=== PATIENT | male | born 1945 | race Caucasian/White ===

== ENCOUNTER 2018-04-11 12:48 | Emergency (ER) | payer MEDICAID, MEDICARE ==
[~2018-04-11] VITALS: Ht 177.8 cm; Wt 70.0 kg
[~2018-04-11 12:48] MED LIST: ABIL5 PO; ACET650S25 PO; ATOR20TA65 PO; BISA10SU66 RC; CHOL100044 PO; CLON1TAB PO; DOCU-150 PO; DULO60CA44 PO; FERR-63 PO; FLONAS NS; FLUT12AE3 IH; HYDR-3927 PO; IBUP-1649 PO; MAGN800O PO; METF500T6 PO; MONT10TA21 PO; MULT-1146 PO; OMEP20TA15 PO; OXYB15TA9 PO; TIOT18CA3 INH
[2018-04-11 13:36] LABS: CHLORIDE 97 mEq/L (98-107); PROTHROMBIN TIME 9.6 sec (9.1-11.1)
[2018-04-11 13:39] LABS: HEMATOCRIT. 24.6 % (42.0-52.0); HEMOGLOBIN. 7.9 g/dL (14.0-18.0); MEAN PLATELET VOLUME 7.3 fl (7.4-10.4); PLATELET 389 x1000/uL (130-400); RED BLOOD CELL COUNT 2.93 mill/uL (4.7-6.1); RED CELL DISTRIBUTION WIDTH 16.9 % (11.6-14.6)
[2018-04-11 14:20] LABS: PLATELET ESTIMATE NORMAL
[2018-04-11 17:36] VITALS: BP 106/67
== END 2018-04-11 17:40 ==
LOC: ER 12:48 → CANBEDREQ 18:21
DX: D64.9 Anemia, unspecified (principal); E86.0 Dehydration; I11.0 Hypertensive heart disease with heart failure; I50.9 Heart failure, unspecified; K21.9 Gastro-esophageal reflux disease without esophagitis; J44.9 Chronic obstructive pulmonary disease, unspecified; E11.9 Type 2 diabetes mellitus without complications; I48.91 Unspecified atrial fibrillation; F31.9 Bipolar disorder, unspecified; E78.00 Pure hypercholesterolemia, unspecified; N40.0 Benign prostatic hyperplasia without lower urinary tract symptoms; Z79.01 Long term (current) use of anticoagulants; Z79.84 Long term (current) use of oral hypoglycemic drugs; Z93.0 Tracheostomy status
CPT/HCPCS: 36415; 71045; 80053; 85025; 85610; 86850; 86900; 99285

== ENCOUNTER 2018-07-04 16:54 | Inpatient (IN) | payer MEDICARE, MEDICAID ==
[~2018-07-04] VITALS: Ht 183.1 cm; Wt 81.6 kg
[~2018-07-04 16:54] MED LIST changes: +METF-414 PO; -METF500T6 PO
[2018-07-04 17:58] LABS: BASOPHILS % 0.6 % (0.0-2.0); EOSINOPHILS % 0.9 % (0.0-5.0); HEMATOCRIT. 22.9 % (42.0-52.0); HEMOGLOBIN. 7.2 g/dL (14.0-18.0); MEAN CORPUSCULAR HEMOGLOBIN 28.2 pg (28.0-32.0); MEAN CORPUSCULAR VOLUME 89.1 fL (80.0-94.0); MEAN PLATELET VOLUME 7.3 fl (7.4-10.4); NEUTROPHILS % 76.5 % (40.0-76.0); PLATELET 466 x1000/uL (130-400); RED BLOOD CELL COUNT 2.57 mill/uL (4.7-6.1); RED CELL DISTRIBUTION WIDTH 21.2 % (11.6-14.6)
[2018-07-04 18:03] LABS: CHLORIDE 102 mEq/L (98-107)
[2018-07-04 18:05] LABS: PARTIAL THROMBOPLASTIN TIME 26.8 sec (23.4-31.0)
[2018-07-04 18:28] LABS: BG BASE EXCESS 8.7 mmol/L (-2.0-2.0); BG CARBOXYHEMOGLOBIN 0.1 % (0.5-1.5); BG DEOXYHEMOGLOBIN 1.6 % (0.0-5.0); BG FRACTION INSPIRED OXYGEN 40; BG HCO3 ACT 33.8 mmol/L (22.0-26.0); BG METHEMOGLOBIN 0.4 % (0.0-1.5); BG OXYGEN SATURATION 98.4 % (92.0-98.5); BG OXYHEMOGLOBIN 97.9 % (94.0-97.0); BG PCO2 49.8 mmHg (35.0-45.0); BG PH 7.449 (7.350-7.450); BG PO2 119.5 mmHg (75.0-100.0); BG SAMPLE SITE RIGHT RADIAL; BG TIDAL VOLUME(mL) 450 mL; BG TOTAL HEMOGLOBIN 8.7 g/dL (12.0-18.0); BG VENT MODE VENT - A/C; BG VENT RATE 15 set
[2018-07-04] MEDS ORDERED: FUROSEMIDE 20MG/2ML VIAL IVP ONE (18:30)
[2018-07-04 18:47] LABS: TOTAL IRON BINDING CAPACITY 317 ug/dL (250-450)
[2018-07-04 21:15] LABS: CLARITY URINE CLEAR (CLEAR); COLOR URINE YELLOW (YELLOW); KETONES URINE TRACE (NEGATIVE); LEUKOCYTE ESTERASE URINE NEGATIVE (NEGATIVE); NITRITE URINE NEGATIVE (NEGATIVE); OCCULT BLOOD URINE NEGATIVE (NEGATIVE); PH URINE 6.5 (4.5-8.0); PROTEIN URINE NEGATIVE (NEGATIVE); SPECIFIC GRAVITY URINE 1.022 (1.005-1.030)
[2018-07-04 23:15] VITALS: BP 102/52
[2018-07-05] VITALS (12 sets, daily range): BP systolic 96–125; BP diastolic 31–71
[2018-07-05] MEDS ORDERED: ACETAMINOPHEN 325MG TABLET PO PRN (00:30)
[2018-07-05 07:37] LABS: BASOPHILS % 0.8 % (0.0-2.0); EOSINOPHILS % 2.1 % (0.0-5.0); HEMATOCRIT. 22.9 % (42.0-52.0); HEMOGLOBIN. 7.4 g/dL (14.0-18.0); LYMPHOCYTES % 14.9 % (20.0-50.0); MEAN CORPUSCULAR HEMOGLOBIN 28.7 pg (28.0-32.0); MEAN CORPUSCULAR VOLUME 88.9 fL (80.0-94.0); MEAN PLATELET VOLUME 7.6 fl (7.4-10.4); MONOCYTES % 14.2 % (2.0-8.0); PLATELET 436 x1000/uL (130-400); RED BLOOD CELL COUNT 2.57 mill/uL (4.7-6.1); RED CELL DISTRIBUTION WIDTH 20.7 % (11.6-14.6)
[2018-07-05 07:51] LABS: CHLORIDE 100 mEq/L (98-107)
[2018-07-05] MEDS ORDERED: PANTOPRAZOLE SODIUM 40 MG/VIAL IV NR (13:15)
[2018-07-05] MEDS ORDERED: IPRATROPIUM/ALBUTEROL 0.5-3(2.5)MG/3ML NEB HHN PRN (13:15)
[2018-07-05] MEDS: FERROUS SULFATE 325MG TABLET PO SCH ×2 (13:51→18:13)
[2018-07-05] MEDS: ACETYLCYSTEINE 100MG/ML 10% VIAL 4ML INH SCH ×2 (15:44→23:35)
[2018-07-05] MEDS: IPRATROPIUM/ALBUTEROL 0.5-3(2.5)MG/3ML NEB HHN SCH ×3 (15:44→23:35)
[2018-07-05 16:24] LABS: CLARITY URINE CLEAR (CLEAR); COLOR URINE YELLOW (YELLOW); KETONES URINE TRACE (NEGATIVE); LEUKOCYTE ESTERASE URINE 1+ (NEGATIVE); NITRITE URINE NEGATIVE (NEGATIVE); OCCULT BLOOD URINE 2+ (NEGATIVE); PROTEIN URINE 1+ (NEGATIVE); SPECIFIC GRAVITY URINE 1.021 (1.005-1.030)
[2018-07-05] MEDS ORDERED: DOCUSATE SODIUM 100MG CAPSULE PO PRN (18:00)
[2018-07-05] MEDS ORDERED: ONDANSETRON HCL 4MG/2ML INJ IV PRN (18:00)
[2018-07-05] MEDS ORDERED: CLONIDINE 0.1MG TABLET PO PRN (18:00)
[2018-07-05] MEDS ORDERED: MAGNESIUM/ALUMINUM HYDROXIDE/SIMETHICONE 30ML UDC PO PRN (18:00)
[2018-07-05] MEDS ORDERED: DOCUSATE SODIUM SUGAR FREE 100MG/10ML UDC GT PRN (19:08)
[2018-07-05] MEDS: BUDESONIDE 0.5MG/2ML NEB HHN SCH (20:21)
[2018-07-05] MEDS: ATORVASTATIN CALCIUM 20MG TABLET PO SCH (22:08)
[2018-07-05] MEDS: MONTELUKAST SODIUM 10MG TABLET PO SCH (22:08)
[2018-07-05] MEDS: CLONAZEPAM 1MG TABLET PO SCH (22:09)
[2018-07-05] MEDS: TRAMADOL 50MG TABLET PO PRN (22:10)
[2018-07-05] MEDS: METFORMIN HCL 500MG TABLET PO SCH (22:10)
[2018-07-06] VITALS (12 sets, daily range): BP systolic 88–174; BP diastolic 44–73
[2018-07-06] MEDS: IPRATROPIUM/ALBUTEROL 0.5-3(2.5)MG/3ML NEB HHN SCH ×6 (04:17→23:45)
[2018-07-06 06:36] LABS: BASOPHILS % 0.8 % (0.0-2.0); EOSINOPHILS % 2.7 % (0.0-5.0); HEMATOCRIT. 22.6 % (42.0-52.0); HEMOGLOBIN. 7.3 g/dL (14.0-18.0); LYMPHOCYTES % 14.2 % (20.0-50.0); MEAN CORPUSCULAR HEMOGLOBIN 28.7 pg (28.0-32.0); MEAN CORPUSCULAR VOLUME 88.5 fL (80.0-94.0); MEAN PLATELET VOLUME 7.4 fl (7.4-10.4); MONOCYTES % 13.7 % (2.0-8.0); NEUTROPHILS % 68.6 % (40.0-76.0); PLATELET 451 x1000/uL (130-400); RED BLOOD CELL COUNT 2.55 mill/uL (4.7-6.1); RED CELL DISTRIBUTION WIDTH 20.4 % (11.6-14.6)
[2018-07-06] MEDS: METFORMIN HCL 500MG TABLET PO SCH ×2 (08:03→17:48)
[2018-07-06] MEDS: CHOLECALCIFEROL (D3) 1000 UNIT TABLET PO SCH (08:03)
[2018-07-06] MEDS: FERROUS SULFATE 325MG TABLET PO SCH ×3 (08:03→17:48)
[2018-07-06] MEDS: ASPIRIN 81MG TABLET GT SCH (08:03)
[2018-07-06] MEDS: ASCORBIC ACID 500 MG TABLET GT SCH (08:04)
[2018-07-06] MEDS: DOCUSATE SODIUM SUGAR FREE 100MG/10ML UDC GT SCH (08:04)
[2018-07-06] MEDS: CLONAZEPAM 1MG TABLET PO SCH ×2 (08:04→17:48)
[2018-07-06] MEDS: TRAMADOL 50MG TABLET PO PRN (08:04)
[2018-07-06] MEDS: PANTOPRAZOLE SODIUM 40 MG/VIAL IV SCH (08:05)
[2018-07-06 08:34] LABS: CHLORIDE 99 mEq/L (98-107)
[2018-07-06 08:50] LABS: PHOSPHORUS 4.2 mg/dL (2.5-4.9)
[2018-07-06] MEDS: ACETYLCYSTEINE 100MG/ML 10% VIAL 4ML INH SCH ×3 (08:52→23:44)
[2018-07-06] MEDS: BUDESONIDE 0.5MG/2ML NEB HHN SCH ×2 (08:52→19:44)
[2018-07-06] MEDS ORDERED: SODIUM CHLORIDE 0.9% 1,000 ML IV ONE (09:45)
[2018-07-06] MEDS: PIPERACILLIN/TAZ 3.375G PREMIX 50 ML IV SCH (17:48)
[2018-07-06] MEDS: EPOETIN ALFA 10000UNITS/ML VIAL SUBCUT SCH (21:14)
[2018-07-06] MEDS: MONTELUKAST SODIUM 10MG TABLET PO SCH (21:14)
[2018-07-06] MEDS: ATORVASTATIN CALCIUM 20MG TABLET PO SCH (21:14)
[2018-07-07] VITALS (17 sets, daily range): BP systolic 92–121; BP diastolic 46–72
[2018-07-07] MEDS: PIPERACILLIN/TAZ 3.375G PREMIX 50 ML IV SCH ×2 (00:29→09:13)
[2018-07-07] MEDS: TRAMADOL 50MG TABLET PO PRN ×2 (03:28→16:01)
[2018-07-07] MEDS: IPRATROPIUM/ALBUTEROL 0.5-3(2.5)MG/3ML NEB HHN SCH ×6 (04:08→23:47)
[2018-07-07 06:46] LABS: BASOPHILS % 0.3 % (0.0-2.0); EOSINOPHILS % 2.3 % (0.0-5.0); HEMATOCRIT. 22.1 % (42.0-52.0); HEMOGLOBIN. 7.2 g/dL (14.0-18.0); LYMPHOCYTES % 7.8 % (20.0-50.0); MEAN CORPUSCULAR HEMOGLOBIN 28.6 pg (28.0-32.0); MEAN CORPUSCULAR VOLUME 88.1 fL (80.0-94.0); MEAN PLATELET VOLUME 7.6 fl (7.4-10.4); MONOCYTES % 10.1 % (2.0-8.0); NEUTROPHILS % 79.5 % (40.0-76.0); PLATELET 402 x1000/uL (130-400); RED BLOOD CELL COUNT 2.51 mill/uL (4.7-6.1); RED CELL DISTRIBUTION WIDTH 20.2 % (11.6-14.6)
[2018-07-07 06:57] LABS: CHLORIDE 99 mEq/L (98-107)
[2018-07-07] MEDS: BUDESONIDE 0.5MG/2ML NEB HHN SCH ×2 (08:58→20:41)
[2018-07-07] MEDS: ACETYLCYSTEINE 100MG/ML 10% VIAL 4ML INH SCH (08:58)
[2018-07-07] MEDS: CLONAZEPAM 1MG TABLET PO SCH ×2 (08:58→17:29)
[2018-07-07] MEDS: ASCORBIC ACID 500 MG TABLET GT SCH (08:58)
[2018-07-07] MEDS: CHOLECALCIFEROL (D3) 1000 UNIT TABLET PO SCH (08:58)
[2018-07-07] MEDS: ASPIRIN 81MG TABLET GT SCH (08:58)
[2018-07-07] MEDS: FERROUS SULFATE 325MG TABLET PO SCH ×3 (08:58→17:29)
[2018-07-07] MEDS: METFORMIN HCL 500MG TABLET PO SCH ×2 (08:58→17:29)
[2018-07-07] MEDS: PANTOPRAZOLE SODIUM 40 MG/VIAL IV SCH ×2 (08:59→21:01)
[2018-07-07] MEDS: DOCUSATE SODIUM SUGAR FREE 100MG/10ML UDC GT SCH (08:59)
[2018-07-07] MEDS: MONTELUKAST SODIUM 10MG TABLET PO SCH (21:00)
[2018-07-07] MEDS: ATORVASTATIN CALCIUM 20MG TABLET PO SCH (21:00)
[2018-07-07] MEDS: CEFTRIAXONE 1 G PREMIX 50 ML IV SCH (21:01)
[2018-07-08] VITALS (13 sets, daily range): BP systolic 96–134; BP diastolic 46–78
[2018-07-08] MEDS: TRAMADOL 50MG TABLET PO PRN (00:33)
[2018-07-08] MEDS: IPRATROPIUM/ALBUTEROL 0.5-3(2.5)MG/3ML NEB HHN SCH ×3 (03:48→23:54)
[2018-07-08 06:37] LABS: BASOPHILS % 0.3 % (0.0-2.0); HEMATOCRIT. 24.8 % (42.0-52.0); HEMOGLOBIN. 8.2 g/dL (14.0-18.0); LYMPHOCYTES % 8.5 % (20.0-50.0); MEAN CORPUSCULAR HEMOGLOBIN 29.1 pg (28.0-32.0); MEAN CORPUSCULAR VOLUME 88.6 fL (80.0-94.0); MEAN PLATELET VOLUME 7.6 fl (7.4-10.4); MONOCYTES % 11.4 % (2.0-8.0); NEUTROPHILS % 76.8 % (40.0-76.0); PLATELET 368 x1000/uL (130-400); RED CELL DISTRIBUTION WIDTH 19.4 % (11.6-14.6)
[2018-07-08 06:49] LABS: CHLORIDE 96 mEq/L (98-107)
[2018-07-08] MEDS: FERROUS SULFATE 325MG TABLET PO SCH ×3 (08:00→17:45)
[2018-07-08] MEDS: METFORMIN HCL 500MG TABLET PO SCH ×2 (08:00→17:46)
[2018-07-08] MEDS: CHOLECALCIFEROL (D3) 1000 UNIT TABLET PO SCH (08:35)
[2018-07-08] MEDS: CLONAZEPAM 1MG TABLET PO SCH ×2 (08:35→17:45)
[2018-07-08] MEDS: ASCORBIC ACID 500 MG TABLET GT SCH (08:35)
[2018-07-08] MEDS: ASPIRIN 81MG TABLET GT SCH (08:35)
[2018-07-08] MEDS: DOCUSATE SODIUM SUGAR FREE 100MG/10ML UDC GT SCH (08:35)
[2018-07-08] MEDS: PANTOPRAZOLE SODIUM 40 MG/VIAL IV SCH ×2 (08:38→20:47)
[2018-07-08] MEDS: FLUCONAZOLE 100MG TABLET PO SCH ×2 (09:15→17:45)
[2018-07-08] MEDS: CEFTRIAXONE 1 G PREMIX 50 ML IV SCH (17:13)
[2018-07-08] MEDS: BUDESONIDE 0.5MG/2ML NEB HHN SCH (20:03)
[2018-07-08] MEDS: ATORVASTATIN CALCIUM 20MG TABLET PO SCH (20:47)
[2018-07-08] MEDS: EPOETIN ALFA 10000UNITS/ML VIAL SUBCUT SCH (20:48)
[2018-07-08] MEDS: MONTELUKAST SODIUM 10MG TABLET PO SCH (20:48)
[2018-07-09] VITALS (13 sets, daily range): BP systolic 104–134; BP diastolic 48–93
[2018-07-09] MEDS: IPRATROPIUM/ALBUTEROL 0.5-3(2.5)MG/3ML NEB HHN SCH ×4 (03:56→16:00)
[2018-07-09] MEDS: BUDESONIDE 0.5MG/2ML NEB HHN SCH (08:32)
[2018-07-09] MEDS: CLONAZEPAM 1MG TABLET PO SCH ×2 (08:47→18:29)
[2018-07-09] MEDS: FERROUS SULFATE 300MG/5ML UDC GT SCH ×3 (08:47→18:29)
[2018-07-09] MEDS: CHOLECALCIFEROL (D3) 1000 UNIT TABLET PO SCH (08:47)
[2018-07-09] MEDS: PANTOPRAZOLE SODIUM 40 MG/VIAL IV SCH (08:47)
[2018-07-09] MEDS: METFORMIN HCL 500MG TABLET PO SCH ×2 (08:47→18:29)
[2018-07-09] MEDS: ASCORBIC ACID 500 MG TABLET GT SCH (08:47)
[2018-07-09] MEDS: ASPIRIN 81MG TABLET GT SCH (08:47)
[2018-07-09] MEDS: DOCUSATE SODIUM SUGAR FREE 100MG/10ML UDC GT SCH (09:08)
[2018-07-09] MEDS ORDERED: DEXTROSE 50% WATER 50ML SYRINGE IV PRN (09:30)
[2018-07-09 12:17] LABS: HEMATOCRIT 28.6 % (42.0-52.0); HEMOGLOBIN 9.2 g/dL (14.0-18.0); MEAN CORPUSCULAR HEMOGLOBIN 28.5 pg (28.0-32.0); MEAN CORPUSCULAR VOLUME 88.4 fL (80.0-94.0); PLATELET 392 x1000/uL (130-400); RED BLOOD CELL COUNT 3.24 mill/uL (4.7-6.1); RED CELL DISTRIBUTION WIDTH 19.4 % (11.6-14.6)
[2018-07-09] MEDS: BLOOD SUGAR DIAGNOSTIC STRIP TEST SCH ×2 (12:33→18:29)
[2018-07-09 12:39] LABS: CHLORIDE 97 mEq/L (98-107)
[2018-07-09] MEDS: CEFTRIAXONE 1 G PREMIX 50 ML IV SCH (18:30)
== END 2018-07-09 20:30 | DRG 870 ==
LOC: ER 16:54 → EDBEDREQ 17:48 → 5EST 18:52 → EDBEDREQTM 18:55 → EDBEDREQ 18:55 → EDBEDREQTM 18:58 → ENRESERV 21:56
PROVIDERS: ADMIT Specialist; ATTEND Specialist
PROC: 5A1955Z Respiratory Ventilation, Greater than 96 Consecutive Hours (ICD-10-PCS; 2018-07-04)
PROC: 30233N1 Transfusion of Nonautologous Red Blood Cells into Peripheral Vein, Percutaneous Approach (ICD-10-PCS; principal; 2018-07-07)
DX: A41.59 Other Gram-negative sepsis (principal); J96.20 Acute and chronic respiratory failure, unspecified whether with hypoxia or hypercapnia; J15.1 Pneumonia due to Pseudomonas; B37.49 Other urogenital candidiasis; J44.0 Chronic obstructive pulmonary disease with (acute) lower respiratory infection; J84.9 Interstitial pulmonary disease, unspecified; Z99.11 Dependence on respirator [ventilator] status; D64.9 Anemia, unspecified; E11.9 Type 2 diabetes mellitus without complications; E78.00 Pure hypercholesterolemia, unspecified; E78.5 Hyperlipidemia, unspecified; F31.9 Bipolar disorder, unspecified; F41.9 Anxiety disorder, unspecified; I08.2 Rheumatic disorders of both aortic and tricuspid valves; N40.1 Benign prostatic hyperplasia with lower urinary tract symptoms; L89.899 Pressure ulcer of other site, unspecified stage; I11.0 Hypertensive heart disease with heart failure; I27.21 Secondary pulmonary arterial hypertension; I48.91 Unspecified atrial fibrillation; I50.9 Heart failure, unspecified; K21.9 Gastro-esophageal reflux disease without esophagitis; K59.00 Constipation, unspecified; R13.10 Dysphagia, unspecified; Z93.0 Tracheostomy status; Z87.891 Personal history of nicotine dependence; Z93.1 Gastrostomy status; Z79.84 Long term (current) use of oral hypoglycemic drugs; Z79.1 Long term (current) use of non-steroidal anti-inflammatories (NSAID); Z79.899 Other long term (current) drug therapy
CPT/HCPCS: 36415; 36600; 71045; 80048; 82040; 82270; 82375; 82805; 82962; 83540; 83550; 83735; 83880; 84100; 84484; 85027; 85044; 86850; 86900; 86920; 87070; 87077; 87106; 87186; 93005; 94003; 94640; 96374; 97162; 97167; 99291; A6261; C9113; J0696; J0885; J1940; J2543; J7040; J7050; J7608; J7620; J7626; P9016; A4315

== ENCOUNTER 2019-04-16 23:07 | Inpatient (IN) | payer MEDICARE, MEDICAID ==
[~2019-04-16] VITALS: Ht 185.4 cm; Wt 67.1 kg
[~2019-04-16 23:07] MED LIST changes: -ABIL5 PO; -FLONAS NS; -IBUP-1649 PO; -MAGN800O PO; -TIOT18CA3 INH
[2019-04-17] VITALS (48 sets, daily range): BP systolic 85–124; BP diastolic 41–78
[2019-04-17] MEDS ORDERED: IPRATROPIUM BROMIDE (0.02%) 0.5MG/2.5ML NEB HHN STA (00:07)
[2019-04-17] MEDS ORDERED: ALBUTEROL (0.083%) 2.5MG/3ML NEB HHN STA (00:07)
[2019-04-17] MEDS ORDERED: MORPHINE SULFATE 4 MG/ML CPJ (NOT FOR IM USE) IV STA (00:07)
[2019-04-17] MEDS ORDERED: ONDANSETRON HCL 4MG/2ML INJ IV STA (00:07)
[2019-04-17] MEDS ORDERED: SODIUM CHLORIDE 0.9% 1,000 ML IV ONE (00:07)
[2019-04-17 00:35] LABS: HEMATOCRIT. 30.8 % (42.0-52.0); HEMOGLOBIN. 9.8 g/dL (14.0-18.0); MEAN CORPUSCULAR HEMOGLOBIN 28.2 pg (28.0-32.0); MEAN CORPUSCULAR VOLUME 88.2 fL (80.0-94.0); MEAN PLATELET VOLUME 8.1 fl (7.4-10.4); PLATELET 343 x1000/uL (130-400); RED BLOOD CELL COUNT 3.49 mill/uL (4.7-6.1); RED CELL DISTRIBUTION WIDTH 16.7 % (11.6-14.6)
[2019-04-17 00:42] LABS: CHLORIDE 95 mEq/L (98-107)
[2019-04-17 00:44] LABS: INR 0.9; PROTHROMBIN TIME 9.6 sec (9.6-11.0)
[2019-04-17 02:31] LABS: PLATELET ESTIMATE NORMAL
[2019-04-17] MEDS ORDERED: ONDANSETRON HCL 4MG/2ML INJ IV PRN (03:30)
[2019-04-17] MEDS ORDERED: MAGNESIUM/ALUMINUM HYDROXIDE/SIMETHICONE 30ML UDC PO PRN (03:30)
[2019-04-17] MEDS ORDERED: IPRATROPIUM/ALBUTEROL 0.5-3(2.5)MG/3ML NEB HHN PRN (03:30)
[2019-04-17] MEDS ORDERED: DOCUSATE SODIUM 100MG CAPSULE PO PRN (03:30)
[2019-04-17] MEDS ORDERED: HYDROCODONE/ACETAMINOPHEN 5/325MG TABLET PO PRN (03:30)
[2019-04-17] MEDS ORDERED: CLONIDINE 0.1MG TABLET PO PRN (03:30)
[2019-04-17] MEDS ORDERED: GUAIFENESIN 200MG/10ML SUGAR FREE UDC PO PRN (03:30)
[2019-04-17] MEDS ORDERED: ACETAMINOPHEN 325MG TABLET PO PRN (03:30)
[2019-04-17] MEDS ORDERED: SODIUM CHLORIDE 0.9% 1000ML BAG (SEPSIS BOLUS) IV ONE (03:45)
[2019-04-17] MEDS ORDERED: VANCOMYCIN 1 G PREMIX 200 ML IV ONE (03:45)
[2019-04-17] MEDS ORDERED: PIPERACILLIN/TAZ 3.375G PREMIX 50 ML IV ONE (03:45)
[2019-04-17] MEDS: MORPHINE SULFATE 2 MG/ML CPJ (NOT FOR IM USE) IV PRN ×3 (04:30→20:00)
[2019-04-17 06:24] LABS: PHOSPHORUS 3.3 mg/dL (2.5-4.9)
[2019-04-17] MEDS ORDERED: IOHEXOL-300 100 ML BOTTLE ONE (08:50)
[2019-04-17] MEDS ORDERED: CLONAZEPAM 1MG TABLET PO PRN (09:14)
[2019-04-17] MEDS: OMEPRAZOLE 20MG CAPSULE EXTENDED RELEASE PO SCH (10:49)
[2019-04-17] MEDS: SODIUM CHLORIDE 0.9% 1,000 ML IV SCH (10:49)
[2019-04-17 10:52] LABS: BG BASE EXCESS 7.3 mmol/L (-2.0-2.0); BG CARBOXYHEMOGLOBIN 0.4 % (0.5-1.5); BG DEOXYHEMOGLOBIN 9.3 % (0.0-5.0); BG FRACTION INSPIRED OXYGEN 40; BG HCO3 ACT 35.1 mmol/L (22.0-26.0); BG METHEMOGLOBIN 0.1 % (0.0-1.5); BG OXYGEN SATURATION 90.7 % (92.0-98.5); BG OXYHEMOGLOBIN 90.2 % (94.0-97.0); BG PCO2 69.3 mmHg (35.0-45.0); BG PH 7.322 (7.350-7.450); BG PO2 65.8 mmHg (75.0-100.0); BG SAMPLE SITE RIGHT RADIAL; BG TOTAL HEMOGLOBIN 10.2 g/dL (12.0-18.0); BG VENT MODE MASK - TRACH
[2019-04-17] MEDS ORDERED: VANCOMYCIN 500 MG PREMIX 100 ML IV SCH (11:00)
[2019-04-17] MEDS: DIPHENHYDRAMINE 50MG/ML VIAL IV PRN ×2 (12:04→20:00)
[2019-04-17] MEDS: IPRATROPIUM/ALBUTEROL 0.5-3(2.5)MG/3ML NEB HHN SCH ×3 (13:34→20:29)
[2019-04-17] MEDS ORDERED: RACEPINEPHRINE 2.25% 0.5ML NEB VIAL HHN SCH (15:30)
[2019-04-17] MEDS: PIPERACILLIN/TAZOBACTAM 3.375 G in DEXT 5% WATER 100 ML IV SCH ×2 (16:19→19:37)
[2019-04-17] MEDS: ACETYLCYSTEINE 100MG/ML 10% VIAL 4ML INH SCH (17:08)
[2019-04-17] MEDS: VANCOMYCIN 1 G PREMIX 200 ML IV SCH (20:54)
[2019-04-18] VITALS (33 sets, daily range): BP systolic 90–148; BP diastolic 39–111
[2019-04-18] MEDS: IPRATROPIUM/ALBUTEROL 0.5-3(2.5)MG/3ML NEB HHN SCH ×6 (00:41→20:20)
[2019-04-18] MEDS: ACETYLCYSTEINE 100MG/ML 10% VIAL 4ML INH SCH ×3 (00:43→15:41)
[2019-04-18] MEDS: PIPERACILLIN/TAZOBACTAM 3.375 G in DEXT 5% WATER 100 ML IV SCH ×4 (01:16→17:32)
[2019-04-18] MEDS: SODIUM CHLORIDE 0.9% 1,000 ML IV SCH ×2 (01:16→15:38)
[2019-04-18 05:18] LABS: HEMATOCRIT. 28.7 % (42.0-52.0); HEMOGLOBIN. 9.2 g/dL (14.0-18.0); MEAN CORPUSCULAR HEMOGLOBIN 28.5 pg (28.0-32.0); MEAN CORPUSCULAR VOLUME 89.1 fL (80.0-94.0); MEAN PLATELET VOLUME 7.8 fl (7.4-10.4); PLATELET 304 x1000/uL (130-400); RED BLOOD CELL COUNT 3.23 mill/uL (4.7-6.1); RED CELL DISTRIBUTION WIDTH 16.7 % (11.6-14.6)
[2019-04-18 05:23] LABS: CHLORIDE 102 mEq/L (98-107)
[2019-04-18 05:38] LABS: LDL CHOLESTEROL 41 mg/dL (5-100)
[2019-04-18 05:41] LABS: HDL CHOLESTEROL 42 mg/dL (40-59)
[2019-04-18] MEDS: OMEPRAZOLE 20MG CAPSULE EXTENDED RELEASE PO SCH (06:02)
[2019-04-18] MEDS: RACEPINEPHRINE 2.25% 0.5ML NEB VIAL HHN PRN ×3 (08:56→15:15)
[2019-04-18] MEDS: VANCOMYCIN 1 G PREMIX 200 ML IV SCH ×2 (09:01→21:36)
[2019-04-18] MEDS: DIPHENHYDRAMINE 50MG/ML VIAL IV PRN ×2 (09:01→15:39)
[2019-04-18] MEDS: MORPHINE SULFATE 2 MG/ML CPJ (NOT FOR IM USE) IV PRN ×4 (09:03→17:50)
[2019-04-18 11:36] LABS: PLATELET ESTIMATE NORMAL
[2019-04-18] MEDS ORDERED: EPINEPHRINE 0.1MG/ML (1:10,000) 10ML SYR IV PRN (16:45)
[2019-04-18] MEDS ORDERED: MORPHINE SULFATE 2 MG/ML CPJ (NOT FOR IM USE) IV NR (17:39)
[2019-04-18] MEDS ORDERED: OXYMETAZOLINE HCL NASAL SPRAY 15ML BOTHNSTRLS PRN (18:00)
[2019-04-18] MEDS: RACEPINEPHRINE 2.25% 0.5ML NEB VIAL HHN SCH (20:20)
[2019-04-18] MEDS: HYDROCORTISONE 2.5% CREAM 20GM TOP SCH (21:36)
[2019-04-18] MEDS ORDERED: IOHEXOL-350 100 ML BOTTLE ONE (22:19)
[2019-04-19] VITALS (25 sets, daily range): BP systolic 86–127; BP diastolic 52–89
[2019-04-19] MEDS: ACETYLCYSTEINE 100MG/ML 10% VIAL 4ML INH SCH ×4 (00:05→17:05)
[2019-04-19] MEDS: PIPERACILLIN/TAZOBACTAM 3.375 G in DEXT 5% WATER 100 ML IV SCH ×4 (00:12→17:44)
[2019-04-19] MEDS: IPRATROPIUM/ALBUTEROL 0.5-3(2.5)MG/3ML NEB HHN SCH ×6 (00:27→20:35)
[2019-04-19] MEDS: RACEPINEPHRINE 2.25% 0.5ML NEB VIAL HHN SCH ×5 (00:27→16:59)
[2019-04-19] MEDS: MORPHINE SULFATE 2 MG/ML CPJ (NOT FOR IM USE) IV PRN ×3 (00:28→16:11)
[2019-04-19 05:52] LABS: PROTHROMBIN TIME 10.7 sec (9.6-11.0)
[2019-04-19 05:53] LABS: HEMATOCRIT. 28.6 % (42.0-52.0); HEMOGLOBIN. 9.2 g/dL (14.0-18.0); MEAN CORPUSCULAR HEMOGLOBIN 28.2 pg (28.0-32.0); MEAN CORPUSCULAR VOLUME 87.7 fL (80.0-94.0); MEAN PLATELET VOLUME 8.1 fl (7.4-10.4); PLATELET 330 x1000/uL (130-400); RED BLOOD CELL COUNT 3.26 mill/uL (4.7-6.1); RED CELL DISTRIBUTION WIDTH 16.4 % (11.6-14.6)
[2019-04-19] MEDS: OMEPRAZOLE 20MG CAPSULE EXTENDED RELEASE PO SCH (06:19)
[2019-04-19] MEDS: SODIUM CHLORIDE 0.9% 1,000 ML IV SCH (06:19)
[2019-04-19 06:23] LABS: CHLORIDE 101 mEq/L (98-107)
[2019-04-19 08:32] LABS: PLATELET ESTIMATE NORMAL
[2019-04-19] MEDS: HYDROCORTISONE 2.5% CREAM 20GM TOP SCH ×3 (09:00→21:45)
[2019-04-19] MEDS: VANCOMYCIN 1 G PREMIX 200 ML IV SCH (09:07)
[2019-04-19 10:55] LABS: BG BASE EXCESS 5.1 mmol/L (-2.0-2.0); BG CARBOXYHEMOGLOBIN 0.3 % (0.5-1.5); BG DEOXYHEMOGLOBIN 1.4 % (0.0-5.0); BG FRACTION INSPIRED OXYGEN 60; BG HCO3 ACT 31.6 mmol/L (22.0-26.0); BG METHEMOGLOBIN 0.3 % (0.0-1.5); BG OXYGEN SATURATION 98.6 % (92.0-98.5); BG PCO2 56.5 mmHg (35.0-45.0); BG PH 7.365 (7.350-7.450); BG SAMPLE SITE RIGHT RADIAL; BG TOTAL HEMOGLOBIN 10.1 g/dL (12.0-18.0); BG VENT MODE MASK - TRACH
[2019-04-19] MEDS: DULOXETINE HCL 20MG DR CAPSULE PO SCH ×2 (11:39→21:45)
[2019-04-20] VITALS (13 sets, daily range): BP systolic 89–119; BP diastolic 39–75
[2019-04-20] MEDS: IPRATROPIUM/ALBUTEROL 0.5-3(2.5)MG/3ML NEB HHN SCH ×6 (00:05→19:56)
[2019-04-20] MEDS: SODIUM CHLORIDE 0.9% 1,000 ML IV SCH ×2 (00:16→23:55)
[2019-04-20] MEDS: PIPERACILLIN/TAZOBACTAM 3.375 G in DEXT 5% WATER 100 ML IV SCH ×5 (00:16→23:58)
[2019-04-20] MEDS: MORPHINE SULFATE 2 MG/ML CPJ (NOT FOR IM USE) IV PRN ×5 (00:17→23:54)
[2019-04-20] MEDS: OMEPRAZOLE 20MG CAPSULE EXTENDED RELEASE PO SCH (05:49)
[2019-04-20 06:01] LABS: HEMATOCRIT. 27.9 % (42.0-52.0); MEAN CORPUSCULAR HEMOGLOBIN 28.4 pg (28.0-32.0); MEAN CORPUSCULAR VOLUME 88.4 fL (80.0-94.0); MEAN PLATELET VOLUME 7.8 fl (7.4-10.4); PLATELET 301 x1000/uL (130-400); RED BLOOD CELL COUNT 3.15 mill/uL (4.7-6.1); RED CELL DISTRIBUTION WIDTH 16.6 % (11.6-14.6)
[2019-04-20 06:12] LABS: CHLORIDE 100 mEq/L (98-107)
[2019-04-20 07:52] LABS: PLATELET ESTIMATE NORMAL
[2019-04-20] MEDS: ACETYLCYSTEINE 100MG/ML 10% VIAL 4ML INH SCH ×2 (08:00→15:57)
[2019-04-20] MEDS: DULOXETINE HCL 20MG DR CAPSULE PO SCH ×2 (09:00→23:52)
[2019-04-20] MEDS: HYDROCORTISONE 2.5% CREAM 20GM TOP SCH ×2 (10:21→23:58)
[2019-04-20] MEDS: RACEPINEPHRINE 2.25% 0.5ML NEB VIAL HHN SCH ×2 (11:40→20:15)
[2019-04-21] VITALS (11 sets, daily range): BP systolic 99–143; BP diastolic 26–89
[2019-04-21] MEDS: IPRATROPIUM/ALBUTEROL 0.5-3(2.5)MG/3ML NEB HHN SCH ×5 (01:01→16:17)
[2019-04-21] MEDS: ACETYLCYSTEINE 100MG/ML 10% VIAL 4ML INH SCH ×3 (01:01→16:17)
[2019-04-21] MEDS: PIPERACILLIN/TAZOBACTAM 3.375 G in DEXT 5% WATER 100 ML IV SCH ×2 (05:45→13:20)
[2019-04-21] MEDS: MORPHINE SULFATE 2 MG/ML CPJ (NOT FOR IM USE) IV PRN (05:46)
[2019-04-21 06:17] LABS: HEMATOCRIT. 28.5 % (42.0-52.0); HEMOGLOBIN. 9.1 g/dL (14.0-18.0); MEAN CORPUSCULAR HEMOGLOBIN 28.3 pg (28.0-32.0); MEAN CORPUSCULAR VOLUME 88.6 fL (80.0-94.0); MEAN PLATELET VOLUME 7.8 fl (7.4-10.4); PLATELET 311 x1000/uL (130-400); RED BLOOD CELL COUNT 3.22 mill/uL (4.7-6.1); RED CELL DISTRIBUTION WIDTH 16.6 % (11.6-14.6)
[2019-04-21 07:29] LABS: CHLORIDE 99 mEq/L (98-107)
[2019-04-21] MEDS: DULOXETINE HCL 20MG DR CAPSULE PO SCH (09:25)
[2019-04-21] MEDS: OMEPRAZOLE 20MG CAPSULE EXTENDED RELEASE PO SCH (09:25)
[2019-04-21] MEDS: HYDROCORTISONE 2.5% CREAM 20GM TOP SCH (09:27)
[2019-04-21] MEDS: RACEPINEPHRINE 2.25% 0.5ML NEB VIAL HHN SCH ×3 (10:07→16:17)
[2019-04-22 14:39] LABS: PLATELET ESTIMATE NORMAL
== END 2019-04-21 17:36 | DRG 919 ==
LOC: ER 23:07 → MICUNO 04-17 02:21 → EDBEDREQSVC 04-17 02:25 → EDBEDREQTM 04-17 02:25 → EDBEDREQ 04-17 02:25 → EDBEDREQSVC 04-17 03:53 → EDBEDREQTM 04-17 03:53 → EDBEDREQ 04-17 03:53 → ENRESERV 04-17 08:08 → 5EST 04-20 21:45
PROVIDERS: ADMIT Family Medicine Adult Medicine; ATTEND Family Medicine Adult Medicine
DX: T81.82XA Emphysema (subcutaneous) resulting from a procedure, initial encounter (principal); J96.20 Acute and chronic respiratory failure, unspecified whether with hypoxia or hypercapnia; J18.9 Pneumonia, unspecified organism; J95.01 Hemorrhage from tracheostomy stoma; E46 Unspecified protein-calorie malnutrition; L03.221 Cellulitis of neck; Z68.1 Body mass index [BMI] 19.9 or less, adult; J95.02 Infection of tracheostomy stoma; J95.03 Malfunction of tracheostomy stoma; R13.10 Dysphagia, unspecified; E78.5 Hyperlipidemia, unspecified; F31.9 Bipolar disorder, unspecified; F41.9 Anxiety disorder, unspecified; E11.51 Type 2 diabetes mellitus with diabetic peripheral angiopathy without gangrene; I36.1 Nonrheumatic tricuspid (valve) insufficiency; I10 Essential (primary) hypertension; I25.10 Atherosclerotic heart disease of native coronary artery without angina pectoris; K21.9 Gastro-esophageal reflux disease without esophagitis; M85.80 Other specified disorders of bone density and structure, unspecified site; N40.0 Benign prostatic hyperplasia without lower urinary tract symptoms; Z87.891 Personal history of nicotine dependence; I27.20 Pulmonary hypertension, unspecified; Y83.8 Other surgical procedures as the cause of abnormal reaction of the patient, or of later complication, without mention of misadventure at the time of the procedure; Y82.8 Other medical devices associated with adverse incidents; L98.9 Disorder of the skin and subcutaneous tissue, unspecified; Z79.84 Long term (current) use of oral hypoglycemic drugs
CPT/HCPCS: 36415; 36600; 70490; 71045; 71250; 71275; 74177; 80048; 80061; 80202; 82375; 82805; 83036; 83605; 83735; 84100; 84134; 84145; 84443; 85018; 86850; 86900; 87070; 87077; 87186; 93005; 93970; 94640; 99291; A6261; C1893; J1200; J2270; J2405; J2543; J3370; J3490; J7030; J7060; J7608; J7611; J7620; Q9967

== ENCOUNTER 2019-09-06 13:39 | Inpatient (IN) | payer MEDICAID, MEDICARE ==
[~2019-09-06] VITALS: Ht 170.2 cm; Wt 69.9 kg
[2019-09-06] MEDS ORDERED: SODIUM CHLORIDE 0.9% 1000ML BAG (SEPSIS BOLUS) IV ONE (14:15)
[2019-09-06 14:49] LABS: MEAN CORPUSCULAR HEMOGLOBIN 27.9 pg (28.0-32.0); MEAN CORPUSCULAR VOLUME 89.6 fL (80.0-94.0); MEAN PLATELET VOLUME 7.6 fl (7.4-10.4); PLATELET 359 x1000/uL (130-400); RED BLOOD CELL COUNT 2.35 mill/uL (4.7-6.1); RED CELL DISTRIBUTION WIDTH 17.8 % (11.6-14.6)
[2019-09-06 14:51] LABS: CHLORIDE 103 mEq/L (98-107)
[2019-09-06 14:53] LABS: PARTIAL THROMBOPLASTIN TIME 25.5 sec (23.4-31.0); PROTHROMBIN TIME 10.5 sec (9.6-11.0)
[2019-09-06 14:56] LABS: HEMATOCRIT. 21.1 % (42.0-52.0); HEMOGLOBIN. 6.6 g/dL (14.0-18.0)
[2019-09-06 15:06] LABS: PLATELET ESTIMATE NORMAL
[2019-09-06 15:22] LABS: BG BASE EXCESS 10.2 mmol/L (-2.0-2.0); BG CARBOXYHEMOGLOBIN 1.1 % (0.5-1.5); BG DEOXYHEMOGLOBIN 3.7 % (0.0-5.0); BG FRACTION INSPIRED OXYGEN 40; BG HCO3 ACT 35.8 mmol/L (22.0-26.0); BG METHEMOGLOBIN 0.1 % (0.0-1.5); BG OXYGEN SATURATION 96.3 % (92.0-98.5); BG OXYHEMOGLOBIN 95.1 % (94.0-97.0); BG PCO2 60.3 mmHg (35.0-45.0); BG PH 7.392 (7.350-7.450); BG PO2 86.3 mmHg (75.0-100.0); BG SAMPLE SITE RIGHT RADIAL; BG TIDAL VOLUME(mL) 500 mL; BG TOTAL HEMOGLOBIN 4.9 g/dL (12.0-18.0); BG VENT MODE VENT - A/C; BG VENT RATE 20 set
[2019-09-06] MEDS ORDERED: PIPERACILLIN/TAZ 3.375G PREMIX 50 ML IV ONE (15:30)
[2019-09-06] MEDS ORDERED: VANCOMYCIN 1 G PREMIX 200 ML IV SCH (15:30)
[2019-09-06] MEDS: SODIUM CHLORIDE 0.9% 1,000 ML IV SCH (15:55)
[2019-09-06] MEDS ORDERED: ONDANSETRON HCL 4MG/2ML INJ IV PRN (16:00)
[2019-09-06] MEDS ORDERED: PIPERACILLIN/TAZOBACTAM 3.375 G in DEXTROSE 5% WATER 50 ML IV SCH (16:00)
[2019-09-06 17:29] LABS: FERRITIN 39 ng/mL (22-322)
[2019-09-06 17:39] LABS: FOLIC ACID (FOLATE) SERUM > 20.00 ng/mL (>5.38); VITAMIN B12 SERUM 550 pg/mL (211-911)
[2019-09-06] MEDS ORDERED: IPRATROPIUM/ALBUTEROL 0.5-3(2.5)MG/3ML NEB HHN STA (18:18)
[2019-09-06] MEDS: IPRATROPIUM/ALBUTEROL 0.5-3(2.5)MG/3ML NEB HHN SCH (20:30)
[2019-09-06] MEDS: BUDESONIDE 0.5MG/2ML NEB HHN SCH (20:31)
[2019-09-07] VITALS (18 sets, daily range): BP systolic 88–119; BP diastolic 48–87
[2019-09-07] MEDS: IPRATROPIUM/ALBUTEROL 0.5-3(2.5)MG/3ML NEB HHN SCH ×6 (00:05→19:50)
[2019-09-07] MEDS: ACETYLCYSTEINE 100MG/ML 10% VIAL 4ML INH SCH ×3 (00:06→16:00)
[2019-09-07] MEDS: SODIUM CHLORIDE 0.9% 1,000 ML IV SCH ×2 (01:31→18:07)
[2019-09-07] MEDS: PIPERACILLIN/TAZOBACTAM 3.375 G in DEXT 5% WATER 100 ML IV SCH ×4 (01:32→21:25)
[2019-09-07] MEDS ORDERED: VANCOMYCIN 1500MG in DEXTROSE 5% WATER 250ML IV SCH (02:00)
[2019-09-07 06:38] LABS: HEMOGLOBIN. 7.2 g/dL (14.0-18.0); MEAN CORPUSCULAR HEMOGLOBIN 29.3 pg (28.0-32.0); MEAN CORPUSCULAR VOLUME 89.9 fL (80.0-94.0); PLATELET 250 x1000/uL (130-400); RED BLOOD CELL COUNT 2.45 mill/uL (4.7-6.1)
[2019-09-07 07:29] LABS: CHLORIDE 110 mEq/L (98-107)
[2019-09-07] MEDS: BUDESONIDE 0.5MG/2ML NEB HHN SCH ×2 (08:12→19:51)
[2019-09-07] MEDS ORDERED: OMEPRAZOLE 20MG CAPSULE EXTENDED RELEASE PO SCH (10:30)
[2019-09-07] MEDS: LORAZEPAM 2MG/ML CPJ IV PRN ×2 (11:33→22:49)
[2019-09-07] MEDS: INSULIN LISPRO 100 UNITS/ML SUBCUT SCH ×2 (12:00→18:00)
[2019-09-07] MEDS: BLOOD SUGAR DIAGNOSTIC STRIP TEST SCH ×2 (12:00→18:07)
[2019-09-07] MEDS: LANSOPRAZOLE 30MG DR CAPSULE GT SCH (13:46)
[2019-09-07] MEDS: VANCOMYCIN 1 G PREMIX 200 ML IV SCH (15:14)
[2019-09-07 17:32] LABS: PLATELET ESTIMATE NORMAL
[2019-09-08] VITALS (16 sets, daily range): BP systolic 86–153; BP diastolic 45–73
[2019-09-08] MEDS: ACETYLCYSTEINE 100MG/ML 10% VIAL 4ML INH SCH ×3 (00:15→16:46)
[2019-09-08] MEDS: IPRATROPIUM/ALBUTEROL 0.5-3(2.5)MG/3ML NEB HHN SCH ×6 (00:15→20:27)
[2019-09-08] MEDS: ACETAMINOPHEN 325MG TABLET PO PRN (01:01)
[2019-09-08] MEDS: VANCOMYCIN 1 G PREMIX 200 ML IV SCH ×2 (04:15→17:22)
[2019-09-08] MEDS: LORAZEPAM 2MG/ML CPJ IV PRN ×2 (04:15→10:43)
[2019-09-08] MEDS: INSULIN LISPRO 100 UNITS/ML SUBCUT SCH ×4 (06:00→17:51)
[2019-09-08] MEDS: PIPERACILLIN/TAZOBACTAM 3.375 G in DEXT 5% WATER 100 ML IV SCH ×3 (06:00→21:43)
[2019-09-08] MEDS: BLOOD SUGAR DIAGNOSTIC STRIP TEST SCH ×4 (06:00→17:51)
[2019-09-08 07:08] LABS: HEMATOCRIT. 23.9 % (42.0-52.0); HEMOGLOBIN. 7.9 g/dL (14.0-18.0); MEAN CORPUSCULAR HEMOGLOBIN 29.7 pg (28.0-32.0); MEAN CORPUSCULAR VOLUME 89.2 fL (80.0-94.0); MEAN PLATELET VOLUME 8.2 fl (7.4-10.4); PLATELET 254 x1000/uL (130-400); RED BLOOD CELL COUNT 2.68 mill/uL (4.7-6.1); RED CELL DISTRIBUTION WIDTH 16.3 % (11.6-14.6)
[2019-09-08 07:27] LABS: CHLORIDE 107 mEq/L (98-107)
[2019-09-08 07:34] LABS: TOTAL IRON BINDING CAPACITY 299 ug/dL (250-450)
[2019-09-08] MEDS ORDERED: POTASSIUM CHLORIDE 20MEQ/PACKET PO NR ×2 (08:15→10:15)
[2019-09-08] MEDS: LANSOPRAZOLE 30MG DR CAPSULE GT SCH (08:39)
[2019-09-08] MEDS: BUDESONIDE 0.5MG/2ML NEB HHN SCH ×2 (08:53→20:25)
[2019-09-08] MEDS: SODIUM CHLORIDE 0.9% 1,000 ML IV SCH (11:22)
[2019-09-08 13:37] LABS: PLATELET ESTIMATE NORMAL
[2019-09-09] VITALS (11 sets, daily range): BP systolic 94–159; BP diastolic 44–91
[2019-09-09] MEDS: BLOOD SUGAR DIAGNOSTIC STRIP TEST SCH ×4 (00:18→18:38)
[2019-09-09] MEDS: SODIUM CHLORIDE 0.9% 1,000 ML IV SCH ×2 (00:20→04:30)
[2019-09-09] MEDS: IPRATROPIUM/ALBUTEROL 0.5-3(2.5)MG/3ML NEB HHN SCH ×6 (00:23→20:42)
[2019-09-09] MEDS: ACETYLCYSTEINE 100MG/ML 10% VIAL 4ML INH SCH ×3 (00:23→14:34)
[2019-09-09] MEDS: VANCOMYCIN 1 G PREMIX 200 ML IV SCH ×2 (04:30→17:50)
[2019-09-09] MEDS: INSULIN LISPRO 100 UNITS/ML SUBCUT SCH ×4 (06:00→18:00)
[2019-09-09] MEDS: PIPERACILLIN/TAZOBACTAM 3.375 G in DEXT 5% WATER 100 ML IV SCH ×3 (06:13→21:05)
[2019-09-09 08:00] LABS: HEMATOCRIT. 25.8 % (42.0-52.0); HEMOGLOBIN. 8.7 g/dL (14.0-18.0); MEAN CORPUSCULAR HEMOGLOBIN 29.8 pg (28.0-32.0); MEAN CORPUSCULAR VOLUME 88.7 fL (80.0-94.0); MEAN PLATELET VOLUME 8.5 fl (7.4-10.4); PLATELET 246 x1000/uL (130-400); RED BLOOD CELL COUNT 2.91 mill/uL (4.7-6.1); RED CELL DISTRIBUTION WIDTH 16.9 % (11.6-14.6)
[2019-09-09] MEDS: LANSOPRAZOLE 30MG DR CAPSULE GT SCH (08:13)
[2019-09-09] MEDS ORDERED: PANTOPRAZOLE SODIUM 40 MG/VIAL IV SCH (09:00)
[2019-09-09 09:16] LABS: CHLORIDE 105 mEq/L (98-107)
[2019-09-09] MEDS: BUDESONIDE 0.5MG/2ML NEB HHN SCH ×2 (09:28→20:42)
[2019-09-09] MEDS: LORAZEPAM 2MG/ML CPJ IV PRN (09:55)
[2019-09-09 10:53] LABS: NUCLEATED RED BLOOD CELLS 1 /100 WBC
[2019-09-09 10:55] LABS: PLATELET ESTIMATE NORMAL
[2019-09-09] MEDS: SUCRALFATE 1 G/10 ML UDC PO SCH ×3 (13:05→21:05)
[2019-09-10] VITALS (12 sets, daily range): BP systolic 92–142; BP diastolic 38–75
[2019-09-10] MEDS: IPRATROPIUM/ALBUTEROL 0.5-3(2.5)MG/3ML NEB HHN SCH ×6 (00:30→20:02)
[2019-09-10] MEDS: ACETYLCYSTEINE 100MG/ML 10% VIAL 4ML INH SCH ×3 (00:31→15:43)
[2019-09-10] MEDS: BLOOD SUGAR DIAGNOSTIC STRIP TEST SCH ×5 (00:33→23:16)
[2019-09-10] MEDS: LORAZEPAM 2MG/ML CPJ IV PRN ×2 (01:22→15:58)
[2019-09-10] MEDS: INSULIN LISPRO 100 UNITS/ML SUBCUT SCH ×5 (05:05→23:16)
[2019-09-10] MEDS: PIPERACILLIN/TAZOBACTAM 3.375 G in DEXT 5% WATER 100 ML IV SCH ×3 (05:05→22:04)
[2019-09-10] MEDS: VANCOMYCIN 1 G PREMIX 200 ML IV SCH ×2 (05:48→16:17)
[2019-09-10 07:26] LABS: HEMATOCRIT. 23.8 % (42.0-52.0); HEMOGLOBIN. 7.9 g/dL (14.0-18.0); MEAN CORPUSCULAR HEMOGLOBIN 29.6 pg (28.0-32.0); MEAN CORPUSCULAR VOLUME 89.3 fL (80.0-94.0); MEAN PLATELET VOLUME 7.7 fl (7.4-10.4); PLATELET 212 x1000/uL (130-400); RED BLOOD CELL COUNT 2.66 mill/uL (4.7-6.1)
[2019-09-10] MEDS: BUDESONIDE 0.5MG/2ML NEB HHN SCH ×2 (07:53→20:02)
[2019-09-10 08:07] LABS: CHLORIDE 103 mEq/L (98-107)
[2019-09-10] MEDS: SUCRALFATE 1 G/10 ML UDC PO SCH ×4 (08:12→20:34)
[2019-09-10] MEDS: IRON SUCROSE COMPLEX 100 MG/5 ML ML IV SCH (10:43)
[2019-09-10] MEDS: IPRATROPIUM/ALBUTEROL 0.5-3(2.5)MG/3ML NEB HHN PRN (15:55)
[2019-09-10] MEDS: SODIUM CHLORIDE 0.9% 1,000 ML IV SCH (20:34)
[2019-09-10 23:07] LABS: PLATELET ESTIMATE NORMAL
[2019-09-11] VITALS (12 sets, daily range): BP systolic 81–135; BP diastolic 44–78
[2019-09-11] MEDS: LORAZEPAM 2MG/ML CPJ IV PRN ×3 (00:02→19:45)
[2019-09-11] MEDS: IPRATROPIUM/ALBUTEROL 0.5-3(2.5)MG/3ML NEB HHN SCH ×6 (00:06→20:41)
[2019-09-11] MEDS: ACETYLCYSTEINE 100MG/ML 10% VIAL 4ML INH SCH ×3 (00:06→15:22)
[2019-09-11] MEDS: VANCOMYCIN 1 G PREMIX 200 ML IV SCH ×2 (03:00→15:27)
[2019-09-11] MEDS: BLOOD SUGAR DIAGNOSTIC STRIP TEST SCH ×4 (05:21→23:09)
[2019-09-11] MEDS: INSULIN LISPRO 100 UNITS/ML SUBCUT SCH ×4 (05:21→23:09)
[2019-09-11] MEDS: PIPERACILLIN/TAZOBACTAM 3.375 G in DEXT 5% WATER 100 ML IV SCH ×3 (05:21→23:03)
[2019-09-11] MEDS: BUDESONIDE 0.5MG/2ML NEB HHN SCH ×2 (07:41→20:41)
[2019-09-11] MEDS: ACETAMINOPHEN 325MG TABLET PO PRN ×2 (08:55→19:45)
[2019-09-11] MEDS: IRON SUCROSE COMPLEX 100 MG/5 ML ML IV SCH (08:56)
[2019-09-11] MEDS: SUCRALFATE 1 G/10 ML UDC PO SCH ×4 (08:56→23:03)
[2019-09-11 11:22] LABS: BG BASE EXCESS 6.5 mmol/L (-2.0-2.0); BG DEOXYHEMOGLOBIN 1.8 % (0.0-5.0); BG FRACTION INSPIRED OXYGEN 40; BG HCO3 ACT 32.8 mmol/L (22.0-26.0); BG METHEMOGLOBIN 0.2 % (0.0-1.5); BG OXYGEN SATURATION 98.2 % (92.0-98.5); BG PCO2 59.6 mmHg (35.0-45.0); BG PH 7.359 (7.350-7.450); BG SAMPLE SITE RIGHT RADIAL; BG TIDAL VOLUME(mL) 500 mL; BG TOTAL HEMOGLOBIN 7.9 g/dL (12.0-18.0); BG VENT MODE VENT - A/C; BG VENT RATE 20 set
[2019-09-11] MEDS: PANTOPRAZOLE SODIUM 40 MG/VIAL IV SCH (11:46)
[2019-09-11 12:33] LABS: HEMATOCRIT 23.4 % (42.0-52.0); HEMOGLOBIN 7.7 g/dL (14.0-18.0); MEAN CORPUSCULAR HEMOGLOBIN 29.5 pg (28.0-32.0); MEAN CORPUSCULAR VOLUME 89.6 fL (80.0-94.0); PLATELET 232 x1000/uL (130-400); RED BLOOD CELL COUNT 2.62 mill/uL (4.7-6.1); RED CELL DISTRIBUTION WIDTH 16.4 % (11.6-14.6)
[2019-09-11 12:41] LABS: CHLORIDE 103 mEq/L (98-107)
[2019-09-11] MEDS: SODIUM CHLORIDE 0.9% 1,000 ML IV SCH ×2 (13:35→20:55)
[2019-09-11 15:44] LABS: PARTIAL THROMBOPLASTIN TIME 31.6 sec (23.4-31.0); PROTHROMBIN TIME 10.5 sec (9.6-11.0)
[2019-09-12] VITALS (16 sets, daily range): BP systolic 88–113; BP diastolic 46–76
[2019-09-12] MEDS: ACETYLCYSTEINE 100MG/ML 10% VIAL 4ML INH SCH (01:00)
[2019-09-12] MEDS: IPRATROPIUM/ALBUTEROL 0.5-3(2.5)MG/3ML NEB HHN SCH ×6 (01:01→20:30)
[2019-09-12] MEDS: LORAZEPAM 2MG/ML CPJ IV PRN ×3 (02:13→20:52)
[2019-09-12] MEDS: ACETAMINOPHEN 325MG TABLET PO PRN ×2 (02:14→08:16)
[2019-09-12] MEDS: BLOOD SUGAR DIAGNOSTIC STRIP TEST SCH ×4 (05:12→23:39)
[2019-09-12] MEDS: PIPERACILLIN/TAZOBACTAM 3.375 G in DEXT 5% WATER 100 ML IV SCH ×3 (05:12→20:52)
[2019-09-12] MEDS: DEXTROSE 50% WATER 50ML SYRINGE IV PRN (05:12)
[2019-09-12] MEDS: INSULIN LISPRO 100 UNITS/ML SUBCUT SCH ×4 (05:12→23:39)
[2019-09-12 05:55] LABS: BASOPHILS % 0.5 % (0.0-2.0); EOSINOPHILS % 2.3 % (0.0-5.0); HEMATOCRIT. 24.3 % (42.0-52.0); HEMOGLOBIN. 7.9 g/dL (14.0-18.0); LYMPHOCYTES % 12.1 % (20.0-50.0); MEAN CORPUSCULAR HEMOGLOBIN 29.1 pg (28.0-32.0); MEAN CORPUSCULAR VOLUME 90.1 fL (80.0-94.0); MEAN PLATELET VOLUME 7.8 fl (7.4-10.4); MONOCYTES % 14.6 % (2.0-8.0); NEUTROPHILS % 70.5 % (40.0-76.0); PLATELET 223 x1000/uL (130-400); RED CELL DISTRIBUTION WIDTH 16.7 % (11.6-14.6)
[2019-09-12 06:19] LABS: CHLORIDE 103 mEq/L (98-107)
[2019-09-12 06:36] LABS: CREATINE KINASE 94 IU/L (39-308)
[2019-09-12] MEDS: PANTOPRAZOLE SODIUM 40 MG/VIAL IV SCH (08:00)
[2019-09-12] MEDS: SODIUM CHLORIDE 0.9% 1,000 ML IV SCH (08:00)
[2019-09-12] MEDS: SUCRALFATE 1 G/10 ML UDC PO SCH ×4 (08:00→20:51)
[2019-09-12] MEDS: BUDESONIDE 0.5MG/2ML NEB HHN SCH ×2 (08:45→20:30)
[2019-09-12] MEDS ORDERED: DEXT 5%/0.45% NACL 1000ML 1,000 ML IV SCH (09:15)
[2019-09-12] MEDS ORDERED: POTASSIUM CHLORIDE 20MEQ/PACKET PO NR (11:00)
[2019-09-13] VITALS (15 sets, daily range): BP systolic 91–150; BP diastolic 47–79
[2019-09-13] MEDS: IPRATROPIUM/ALBUTEROL 0.5-3(2.5)MG/3ML NEB HHN SCH ×6 (00:18→20:12)
[2019-09-13] MEDS: LORAZEPAM 2MG/ML CPJ IV PRN ×3 (03:01→20:22)
[2019-09-13] MEDS: BLOOD SUGAR DIAGNOSTIC STRIP TEST SCH ×3 (05:16→18:00)
[2019-09-13] MEDS: PIPERACILLIN/TAZOBACTAM 3.375 G in DEXT 5% WATER 100 ML IV SCH ×3 (05:16→21:42)
[2019-09-13] MEDS: INSULIN LISPRO 100 UNITS/ML SUBCUT SCH ×3 (05:17→18:00)
[2019-09-13 06:41] LABS: CHLORIDE 105 mEq/L (98-107)
[2019-09-13 07:14] LABS: HEMATOCRIT. 29.6 % (42.0-52.0); HEMOGLOBIN. 9.5 g/dL (14.0-18.0); MEAN CORPUSCULAR VOLUME 90.3 fL (80.0-94.0); MEAN PLATELET VOLUME 8.1 fl (7.4-10.4); PLATELET 266 x1000/uL (130-400); RED BLOOD CELL COUNT 3.28 mill/uL (4.7-6.1); RED CELL DISTRIBUTION WIDTH 16.9 % (11.6-14.6)
[2019-09-13] MEDS: BUDESONIDE 0.5MG/2ML NEB HHN SCH ×2 (07:55→20:13)
[2019-09-13] MEDS: PANTOPRAZOLE SODIUM 40 MG/VIAL IV SCH (08:57)
[2019-09-13] MEDS: ACETAMINOPHEN 325MG TABLET PO PRN ×2 (08:57→20:51)
[2019-09-13] MEDS: SUCRALFATE 1 G/10 ML UDC PO SCH ×4 (08:57→20:21)
[2019-09-13 16:56] LABS: PLATELET ESTIMATE NORMAL
[2019-09-14] VITALS (12 sets, daily range): BP systolic 102–126; BP diastolic 43–94
[2019-09-14] MEDS: BLOOD SUGAR DIAGNOSTIC STRIP TEST SCH ×4 (00:04→17:18)
[2019-09-14] MEDS: IPRATROPIUM/ALBUTEROL 0.5-3(2.5)MG/3ML NEB HHN SCH ×6 (00:22→20:30)
[2019-09-14] MEDS: INSULIN LISPRO 100 UNITS/ML SUBCUT SCH ×4 (06:00→17:18)
[2019-09-14] MEDS: PIPERACILLIN/TAZOBACTAM 3.375 G in DEXT 5% WATER 100 ML IV SCH ×3 (06:04→22:38)
[2019-09-14 06:11] LABS: CHLORIDE 102 mEq/L (98-107)
[2019-09-14 06:24] LABS: BASOPHILS % 0.4 % (0.0-2.0); EOSINOPHILS % 2.2 % (0.0-5.0); HEMATOCRIT. 31.9 % (42.0-52.0); HEMOGLOBIN. 10.4 g/dL (14.0-18.0); LYMPHOCYTES % 11.1 % (20.0-50.0); MEAN CORPUSCULAR HEMOGLOBIN 29.2 pg (28.0-32.0); MEAN CORPUSCULAR VOLUME 89.9 fL (80.0-94.0); MEAN PLATELET VOLUME 8.4 fl (7.4-10.4); MONOCYTES % 12.5 % (2.0-8.0); NEUTROPHILS % 73.8 % (40.0-76.0); PLATELET 277 x1000/uL (130-400); RED BLOOD CELL COUNT 3.55 mill/uL (4.7-6.1); RED CELL DISTRIBUTION WIDTH 17.2 % (11.6-14.6)
[2019-09-14] MEDS: SUCRALFATE 1 G/10 ML UDC PO SCH ×4 (07:30→21:00)
[2019-09-14] MEDS: BUDESONIDE 0.5MG/2ML NEB HHN SCH ×2 (08:34→20:30)
[2019-09-14] MEDS: PANTOPRAZOLE SODIUM 40 MG/VIAL IV SCH (09:00)
[2019-09-14] MEDS: LORAZEPAM 2MG/ML CPJ IV PRN ×2 (11:53→20:07)
[2019-09-14] MEDS: DEXTROSE 50% WATER 50ML SYRINGE IV PRN (18:19)
[2019-09-14] MEDS ORDERED: LORAZEPAM 2MG/ML CPJ IV PRN (20:15)
[2019-09-14] MEDS: DEXT 5%/0.45% NACL 1000ML 1,000 ML IV SCH (21:10)
[2019-09-15] VITALS (12 sets, daily range): BP systolic 97–128; BP diastolic 38–94
[2019-09-15] MEDS: IPRATROPIUM/ALBUTEROL 0.5-3(2.5)MG/3ML NEB HHN SCH ×5 (00:38→19:59)
[2019-09-15] MEDS: BLOOD SUGAR DIAGNOSTIC STRIP TEST SCH ×4 (00:41→17:45)
[2019-09-15] MEDS: INSULIN LISPRO 100 UNITS/ML SUBCUT SCH ×4 (05:49→17:45)
[2019-09-15] MEDS: SUCRALFATE 1 G/10 ML UDC PO SCH ×4 (07:30→22:08)
[2019-09-15] MEDS: PANTOPRAZOLE SODIUM 40 MG/VIAL IV SCH (10:06)
[2019-09-15] MEDS: LORAZEPAM 2MG/ML CPJ IV PRN (10:19)
[2019-09-15] MEDS: DEXT 5%/0.45% NACL 1000ML 1,000 ML IV SCH (16:15)
[2019-09-15 16:27] LABS: BASOPHILS % 0.7 % (0.0-2.0); EOSINOPHILS % 2.3 % (0.0-5.0); HEMATOCRIT. 29.7 % (42.0-52.0); HEMOGLOBIN. 9.6 g/dL (14.0-18.0); MEAN CORPUSCULAR VOLUME 89.4 fL (80.0-94.0); MEAN PLATELET VOLUME 8.1 fl (7.4-10.4); MONOCYTES % 14.3 % (2.0-8.0); NEUTROPHILS % 70.7 % (40.0-76.0); PLATELET 300 x1000/uL (130-400); RED BLOOD CELL COUNT 3.33 mill/uL (4.7-6.1); RED CELL DISTRIBUTION WIDTH 16.5 % (11.6-14.6)
[2019-09-15 16:50] LABS: CHLORIDE 98 mEq/L (98-107)
[2019-09-15] MEDS ORDERED: DIATR MEGLU/DIATRIZOATE SOLN 30ML ONE (19:16)
[2019-09-15] MEDS: BUDESONIDE 0.5MG/2ML NEB HHN SCH (19:59)
[2019-09-15] MEDS ORDERED: HALOPERIDOL LACTATE 5MG/ML VIAL IM PRN (21:45)
[2019-09-15] MEDS: MORPHINE SULFATE 2 MG/ML CPJ (NOT FOR IM USE) IV PRN (22:11)
[2019-09-16] VITALS (12 sets, daily range): BP systolic 100–140; BP diastolic 50–71
[2019-09-16] MEDS: IPRATROPIUM/ALBUTEROL 0.5-3(2.5)MG/3ML NEB HHN SCH ×6 (00:10→20:35)
[2019-09-16] MEDS: BLOOD SUGAR DIAGNOSTIC STRIP TEST SCH ×5 (00:47→23:53)
[2019-09-16] MEDS: INSULIN LISPRO 100 UNITS/ML SUBCUT SCH ×5 (06:00→23:53)
[2019-09-16 06:08] LABS: HEMOGLOBIN. 10.2 g/dL (14.0-18.0); MEAN CORPUSCULAR HEMOGLOBIN 28.7 pg (28.0-32.0); MEAN CORPUSCULAR VOLUME 89.8 fL (80.0-94.0); MEAN PLATELET VOLUME 7.9 fl (7.4-10.4); PLATELET 377 x1000/uL (130-400); RED BLOOD CELL COUNT 3.57 mill/uL (4.7-6.1); RED CELL DISTRIBUTION WIDTH 16.6 % (11.6-14.6)
[2019-09-16 06:10] LABS: CHLORIDE 99 mEq/L (98-107)
[2019-09-16] MEDS: PANTOPRAZOLE SODIUM 40 MG/VIAL IV SCH (08:30)
[2019-09-16] MEDS: BUDESONIDE 0.5MG/2ML NEB HHN SCH (08:30)
[2019-09-16] MEDS: SUCRALFATE 1 G/10 ML UDC PO SCH ×4 (08:30→20:01)
[2019-09-16] MEDS: LORAZEPAM 2MG/ML CPJ IV PRN ×2 (09:05→22:51)
[2019-09-16] MEDS: MORPHINE SULFATE 2 MG/ML CPJ (NOT FOR IM USE) IV PRN ×2 (10:33→19:56)
[2019-09-16] MEDS: DEXT 5%/0.45% NACL 1000ML 1,000 ML IV SCH (11:40)
[2019-09-16 19:45] LABS: PLATELET ESTIMATE NORMAL
[2019-09-17] VITALS (13 sets, daily range): BP systolic 91–116; BP diastolic 52–70
[2019-09-17] MEDS: BUDESONIDE 0.5MG/2ML NEB HHN SCH ×3 (00:23→20:58)
[2019-09-17] MEDS: MORPHINE SULFATE 2 MG/ML CPJ (NOT FOR IM USE) IV PRN ×2 (04:13→20:53)
[2019-09-17] MEDS: INSULIN LISPRO 100 UNITS/ML SUBCUT SCH ×2 (06:00→12:00)
[2019-09-17] MEDS: BLOOD SUGAR DIAGNOSTIC STRIP TEST SCH ×2 (06:07→12:00)
[2019-09-17] MEDS: IPRATROPIUM/ALBUTEROL 0.5-3(2.5)MG/3ML NEB HHN SCH ×4 (08:27→20:58)
[2019-09-17] MEDS: SUCRALFATE 1 G/10 ML UDC PO SCH ×4 (08:58→20:53)
[2019-09-17] MEDS: PANTOPRAZOLE SODIUM 40 MG/VIAL IV SCH (08:58)
[2019-09-17] MEDS: DEXT 5%/0.45% NACL 1000ML 1,000 ML IV SCH (08:58)
[2019-09-17] MEDS ORDERED: LORAZEPAM 2MG/ML CPJ IV SCH (10:15)
[2019-09-17] MEDS ORDERED: LORAZEPAM 2MG/ML CPJ IV PRN ×2 (10:45→11:00)
[2019-09-17] MEDS: MUPIROCIN 2% OINT 22GM NS SCH (20:53)
[2019-09-18] VITALS (13 sets, daily range): BP systolic 90–134; BP diastolic 56–73
[2019-09-18] MEDS: IPRATROPIUM/ALBUTEROL 0.5-3(2.5)MG/3ML NEB HHN SCH ×6 (00:46→20:31)
[2019-09-18] MEDS: MORPHINE SULFATE 2 MG/ML CPJ (NOT FOR IM USE) IV PRN ×2 (01:13→18:11)
[2019-09-18] MEDS: IPRATROPIUM/ALBUTEROL 0.5-3(2.5)MG/3ML NEB HHN PRN ×2 (01:28→07:10)
[2019-09-18] MEDS: INSULIN LISPRO 100 UNITS/ML SUBCUT SCH ×4 (06:00→18:00)
[2019-09-18 06:11] LABS: BASOPHILS % 0.9 % (0.0-2.0); EOSINOPHILS % 1.2 % (0.0-5.0); HEMATOCRIT. 29.6 % (42.0-52.0); HEMOGLOBIN. 9.7 g/dL (14.0-18.0); MEAN CORPUSCULAR HEMOGLOBIN 29.1 pg (28.0-32.0); MEAN CORPUSCULAR VOLUME 89.1 fL (80.0-94.0); MEAN PLATELET VOLUME 8.3 fl (7.4-10.4); MONOCYTES % 9.9 % (2.0-8.0); PLATELET 358 x1000/uL (130-400); RED BLOOD CELL COUNT 3.32 mill/uL (4.7-6.1); RED CELL DISTRIBUTION WIDTH 17.4 % (11.6-14.6)
[2019-09-18] MEDS: BLOOD SUGAR DIAGNOSTIC STRIP TEST SCH ×4 (06:21→18:00)
[2019-09-18] MEDS: DEXT 5%/0.45% NACL 1000ML 1,000 ML IV SCH (06:22)
[2019-09-18] MEDS: SUCRALFATE 1 G/10 ML UDC PO SCH ×4 (06:22→21:20)
[2019-09-18 07:29] LABS: CHLORIDE 102 mEq/L (98-107)
[2019-09-18] MEDS: BUDESONIDE 0.5MG/2ML NEB HHN SCH ×2 (08:17→20:32)
[2019-09-18] MEDS: PANTOPRAZOLE SODIUM 40 MG/VIAL IV SCH (09:22)
[2019-09-18] MEDS: MUPIROCIN 2% OINT 22GM NS SCH ×2 (09:23→21:00)
== END 2019-09-19 00:02 | DRG 870 ==
LOC: ER 13:39 → 5EST 15:48 → ENRESERV 21:04
PROVIDERS: ADMIT Internal Medicine; ATTEND Internal Medicine
PROC: 5A1955Z Respiratory Ventilation, Greater than 96 Consecutive Hours (ICD-10-PCS; principal; 2019-09-04)
PROC: 0BH18EZ Insertion of Endotracheal Airway into Trachea, Via Natural or Artificial Opening Endoscopic (ICD-10-PCS; 2019-09-04)
PROC: 30233N1 Transfusion of Nonautologous Red Blood Cells into Peripheral Vein, Percutaneous Approach (ICD-10-PCS; 2019-09-07)
DX: A41.9 Sepsis, unspecified organism (principal); J96.20 Acute and chronic respiratory failure, unspecified whether with hypoxia or hypercapnia; J18.9 Pneumonia, unspecified organism; K92.2 Gastrointestinal hemorrhage, unspecified; I42.9 Cardiomyopathy, unspecified; E46 Unspecified protein-calorie malnutrition; E87.2 Acidosis; K92.1 Melena; Z99.11 Dependence on respirator [ventilator] status; D64.9 Anemia, unspecified; E11.9 Type 2 diabetes mellitus without complications; I10 Essential (primary) hypertension; I27.21 Secondary pulmonary arterial hypertension; F31.9 Bipolar disorder, unspecified; E87.6 Hypokalemia; I48.0 Paroxysmal atrial fibrillation; I08.2 Rheumatic disorders of both aortic and tricuspid valves; D50.0 Iron deficiency anemia secondary to blood loss (chronic); E78.5 Hyperlipidemia, unspecified; F41.9 Anxiety disorder, unspecified; I25.10 Atherosclerotic heart disease of native coronary artery without angina pectoris; I49.1 Atrial premature depolarization; N40.0 Benign prostatic hyperplasia without lower urinary tract symptoms; R13.10 Dysphagia, unspecified; K21.9 Gastro-esophageal reflux disease without esophagitis; R74.0 Nonspecific elevation of levels of transaminase and lactic acid dehydrogenase [LDH]; J43.9 Emphysema, unspecified; R00.0 Tachycardia, unspecified; Z22.322 Carrier or suspected carrier of Methicillin resistant Staphylococcus aureus; Z93.0 Tracheostomy status; Z79.84 Long term (current) use of oral hypoglycemic drugs; Z79.899 Other long term (current) drug therapy; Z87.891 Personal history of nicotine dependence
CPT/HCPCS: 36415; 36600; 71045; 74018; 80048; 80053; 80202; 82270; 82375; 82550; 82607; 82728; 82746; 82805; 82962; 83036; 83540; 83550; 83605; 83735; 83880; 84145; 84484; 85025; 85027; 86850; 86900; 86920; 87070; 87077; 87804; 93005; 93306; 94002; 94003; 94640; 99291; C9113; J1630; J2060; J2270; J2543; J3370; J7030; J7060; J7608; J7626; P9016; P9021; Q9963

== ENCOUNTER 2019-10-02 19:50 | Inpatient (IN) | payer MEDICARE ==
[~2019-10-02] VITALS: Ht 162.6 cm; Wt 68.9 kg
[2019-10-02 20:46] LABS: MEAN CORPUSCULAR HEMOGLOBIN 29.3 pg (28.0-32.0); MEAN CORPUSCULAR VOLUME 93.9 fL (80.0-94.0); MEAN PLATELET VOLUME 8.3 fl (7.4-10.4); PLATELET 336 x1000/uL (130-400); RED BLOOD CELL COUNT 2.35 mill/uL (4.7-6.1); RED CELL DISTRIBUTION WIDTH 19.9 % (11.6-14.6)
[2019-10-02 20:52] LABS: INR 0.9; PARTIAL THROMBOPLASTIN TIME 22.7 sec (23.4-31.0); PROTHROMBIN TIME 10.3 sec (9.6-11.0)
[2019-10-02 20:58] LABS: CHLORIDE 104 mEq/L (98-107); HEMOGLOBIN. 6.9 g/dL (14.0-18.0)
[2019-10-02 21:31] LABS: PLATELET ESTIMATE NORMAL
[2019-10-02] MEDS ORDERED: SODIUM CHLORIDE 0.9% 1000ML BAG (SEPSIS BOLUS) IV NR (22:30)
[2019-10-02] MEDS ORDERED: LEVOFLOXACIN 750MG PREMIX 150 ML IV NR (22:30)
[2019-10-03 07:20] LABS: HEMOGLOBIN. 7.4 g/dL (14.0-18.0); MEAN CORPUSCULAR HEMOGLOBIN 31.2 pg (28.0-32.0); MEAN CORPUSCULAR VOLUME 93.2 fL (80.0-94.0); PLATELET 260 x1000/uL (130-400); RED BLOOD CELL COUNT 2.36 mill/uL (4.7-6.1); RED CELL DISTRIBUTION WIDTH 17.4 % (11.6-14.6)
[2019-10-03 07:26] LABS: CHLORIDE 111 mEq/L (98-107)
[2019-10-03 08:11] LABS: PLATELET ESTIMATE NORMAL
[2019-10-03] MEDS ORDERED: ACETAMINOPHEN 325MG TABLET PO PRN (11:30)
[2019-10-03] MEDS ORDERED: ONDANSETRON HCL 4MG/2ML INJ IV PRN (11:30)
[2019-10-03] MEDS ORDERED: BISACODYL 10MG SUPP RC PRN (11:45)
[2019-10-03] MEDS ORDERED: DEXTROSE 50% WATER 50ML SYRINGE IV PRN (11:45)
[2019-10-03] MEDS: HYDROCODONE/ACETAMINOPHEN 5/325MG TABLET PO PRN (13:41)
[2019-10-03] MEDS: BLOOD SUGAR DIAGNOSTIC STRIP TEST SCH ×3 (14:00→22:00)
[2019-10-03] MEDS: PANTOPRAZOLE 40MG DR TABLET PO SCH (14:00)
[2019-10-03] MEDS: INSULIN LISPRO 100 UNITS/ML SUBCUT SCH ×3 (14:00→22:00)
[2019-10-03] MEDS ORDERED: DULOXETINE HCL 60MG DR CAPSULE PO SCH (17:00)
[2019-10-03] MEDS ORDERED: CLONAZEPAM 1MG TABLET PO NR (17:00)
[2019-10-03] MEDS: ATORVASTATIN CALCIUM 20MG TABLET PO SCH (21:15)
[2019-10-03] MEDS: MONTELUKAST SODIUM 10MG TABLET PO SCH (21:15)
[2019-10-03 22:00] VITALS: BP 121/67
[2019-10-03 23:56] VITALS: BP 121/67
[2019-10-04] VITALS (16 sets, daily range): BP systolic 85–119; BP diastolic 48–85
[2019-10-04] MEDS: PANTOPRAZOLE 40MG DR TABLET PO SCH (06:32)
[2019-10-04] MEDS: HYDROCODONE/ACETAMINOPHEN 5/325MG TABLET PO PRN ×2 (06:32→18:05)
[2019-10-04] MEDS: INSULIN LISPRO 100 UNITS/ML SUBCUT SCH ×4 (07:31→20:47)
[2019-10-04] MEDS: BLOOD SUGAR DIAGNOSTIC STRIP TEST SCH ×4 (07:31→20:47)
[2019-10-04] MEDS: DOCUSATE SODIUM 250MG CAPSULE PO SCH (08:01)
[2019-10-04] MEDS: FERROUS SULFATE 325MG TABLET PO SCH (08:01)
[2019-10-04] MEDS: CHOLECALCIFEROL (D3) 1000 UNIT TABLET PO SCH (08:01)
[2019-10-04] MEDS: DULOXETINE HCL 60MG DR CAPSULE PO SCH (08:02)
[2019-10-04] MEDS: IPRATROPIUM/ALBUTEROL 0.5-3(2.5)MG/3ML NEB HHN PRN (08:10)
[2019-10-04] MEDS: ACETAMINOPHEN 650MG/20.3ML UDC PO PRN (08:14)
[2019-10-04] MEDS ORDERED: CLONAZEPAM 1MG TABLET PO SCH (09:00)
[2019-10-04 10:01] LABS: BASOPHILS % 0.8 % (0.0-2.0); EOSINOPHILS % 0.8 % (0.0-5.0); HEMATOCRIT. 22.1 % (42.0-52.0); HEMOGLOBIN. 7.3 g/dL (14.0-18.0); LYMPHOCYTES % 11.3 % (20.0-50.0); MEAN CORPUSCULAR HEMOGLOBIN 30.6 pg (28.0-32.0); MEAN CORPUSCULAR VOLUME 93.4 fL (80.0-94.0); MEAN PLATELET VOLUME 7.7 fl (7.4-10.4); MONOCYTES % 12.3 % (2.0-8.0); NEUTROPHILS % 74.8 % (40.0-76.0); PLATELET 249 x1000/uL (130-400); RED BLOOD CELL COUNT 2.37 mill/uL (4.7-6.1); RED CELL DISTRIBUTION WIDTH 17.3 % (11.6-14.6)
[2019-10-04 10:15] LABS: CHLORIDE 110 mEq/L (98-107)
[2019-10-04] MEDS ORDERED: KCL 20MEQ/100ML PREMIX 100 ML IV SCH (16:00)
[2019-10-04] MEDS: CLONAZEPAM 0.5MG TABLET PO SCH (16:54)
[2019-10-04] MEDS: ATORVASTATIN CALCIUM 20MG TABLET PO SCH (20:38)
[2019-10-04] MEDS: MONTELUKAST SODIUM 10MG TABLET PO SCH (20:38)
[2019-10-05] VITALS (12 sets, daily range): BP systolic 98–138; BP diastolic 54–87
[2019-10-05 05:27] LABS: BASOPHILS % 0.3 % (0.0-2.0); EOSINOPHILS % 1.3 % (0.0-5.0); HEMATOCRIT. 29.1 % (42.0-52.0); HEMOGLOBIN. 9.5 g/dL (14.0-18.0); LYMPHOCYTES % 10.2 % (20.0-50.0); MEAN CORPUSCULAR HEMOGLOBIN 29.9 pg (28.0-32.0); MEAN PLATELET VOLUME 8.7 fl (7.4-10.4); MONOCYTES % 10.7 % (2.0-8.0); NEUTROPHILS % 77.5 % (40.0-76.0); PLATELET 255 x1000/uL (130-400); RED BLOOD CELL COUNT 3.17 mill/uL (4.7-6.1); RED CELL DISTRIBUTION WIDTH 17.3 % (11.6-14.6)
[2019-10-05 05:33] LABS: CHLORIDE 109 mEq/L (98-107)
[2019-10-05] MEDS: BLOOD SUGAR DIAGNOSTIC STRIP TEST SCH ×4 (07:38→21:47)
[2019-10-05] MEDS: PANTOPRAZOLE 40MG DR TABLET PO SCH (07:47)
[2019-10-05] MEDS: INSULIN LISPRO 100 UNITS/ML SUBCUT SCH ×4 (07:48→21:00)
[2019-10-05] MEDS: CLONAZEPAM 0.5MG TABLET PO SCH ×2 (08:50→18:36)
[2019-10-05] MEDS: FERROUS SULFATE 325MG TABLET PO SCH (08:50)
[2019-10-05] MEDS: DULOXETINE HCL 60MG DR CAPSULE PO SCH (08:50)
[2019-10-05] MEDS: CHOLECALCIFEROL (D3) 1000 UNIT TABLET PO SCH (08:50)
[2019-10-05] MEDS: DOCUSATE SODIUM 250MG CAPSULE PO SCH (08:50)
[2019-10-05] MEDS ORDERED: SUCR1TAB MT (12:21)
[2019-10-05] MEDS ORDERED: PANT40TA4 MT (12:21)
[2019-10-05] MEDS: ATORVASTATIN CALCIUM 20MG TABLET PO SCH (21:47)
[2019-10-05] MEDS: MONTELUKAST SODIUM 10MG TABLET PO SCH (21:47)
[2019-10-06] VITALS (9 sets, daily range): BP systolic 103–126; BP diastolic 55–92
[2019-10-06 06:35] LABS: CHLORIDE 106 mEq/L (98-107)
[2019-10-06 06:46] LABS: BASOPHILS % 0.3 % (0.0-2.0); EOSINOPHILS % 1.8 % (0.0-5.0); HEMATOCRIT. 27.1 % (42.0-52.0); LYMPHOCYTES % 9.2 % (20.0-50.0); MEAN CORPUSCULAR HEMOGLOBIN 30.9 pg (28.0-32.0); MEAN CORPUSCULAR VOLUME 93.2 fL (80.0-94.0); MEAN PLATELET VOLUME 8.6 fl (7.4-10.4); MONOCYTES % 13.8 % (2.0-8.0); NEUTROPHILS % 74.9 % (40.0-76.0); PLATELET 277 x1000/uL (130-400); RED BLOOD CELL COUNT 2.91 mill/uL (4.7-6.1); RED CELL DISTRIBUTION WIDTH 17.3 % (11.6-14.6)
[2019-10-06] MEDS: PANTOPRAZOLE 40MG DR TABLET PO SCH (07:30)
[2019-10-06] MEDS: INSULIN LISPRO 100 UNITS/ML SUBCUT SCH ×2 (08:00→12:12)
[2019-10-06] MEDS: FERROUS SULFATE 325MG TABLET PO SCH (08:15)
[2019-10-06] MEDS: DULOXETINE HCL 60MG DR CAPSULE PO SCH (08:15)
[2019-10-06] MEDS: CLONAZEPAM 0.5MG TABLET PO SCH (08:16)
[2019-10-06] MEDS: ACETAMINOPHEN 650MG/20.3ML UDC PO PRN (08:16)
[2019-10-06] MEDS: BLOOD SUGAR DIAGNOSTIC STRIP TEST SCH ×2 (08:17→12:12)
[2019-10-06] MEDS: DOCUSATE SODIUM 250MG CAPSULE PO SCH (08:17)
[2019-10-06] MEDS: CHOLECALCIFEROL (D3) 1000 UNIT TABLET PO SCH (08:31)
[2019-10-06] MEDS: IPRATROPIUM/ALBUTEROL 0.5-3(2.5)MG/3ML NEB HHN PRN (13:57)
== END 2019-10-06 17:22 | DRG 871 ==
LOC: ER 19:50 → EDBEDREQTM 23:35 → EDBEDREQ 23:35 → EDBEDREQSVC 23:35 → ENRESERV 10-03 20:03 → 5EST 10-03 21:00
PROVIDERS: ADMIT Internal Medicine; ATTEND Internal Medicine
PROC: 30233N1 Transfusion of Nonautologous Red Blood Cells into Peripheral Vein, Percutaneous Approach (ICD-10-PCS; principal; 2019-10-03)
PROC: 5A1945Z Respiratory Ventilation, 24-96 Consecutive Hours (ICD-10-PCS; 2019-10-03)
DX: A41.9 Sepsis, unspecified organism (principal); J96.21 Acute and chronic respiratory failure with hypoxia; J18.9 Pneumonia, unspecified organism; K92.2 Gastrointestinal hemorrhage, unspecified; D62 Acute posthemorrhagic anemia; I42.9 Cardiomyopathy, unspecified; E46 Unspecified protein-calorie malnutrition; R13.10 Dysphagia, unspecified; F41.9 Anxiety disorder, unspecified; F31.9 Bipolar disorder, unspecified; E87.6 Hypokalemia; E83.41 Hypermagnesemia; N40.0 Benign prostatic hyperplasia without lower urinary tract symptoms; I08.2 Rheumatic disorders of both aortic and tricuspid valves; I27.20 Pulmonary hypertension, unspecified; E11.9 Type 2 diabetes mellitus without complications; E78.5 Hyperlipidemia, unspecified; I48.0 Paroxysmal atrial fibrillation; R00.0 Tachycardia, unspecified; R74.0 Nonspecific elevation of levels of transaminase and lactic acid dehydrogenase [LDH]; E03.9 Hypothyroidism, unspecified; R47.02 Dysphasia; J98.2 Interstitial emphysema; I10 Essential (primary) hypertension; I25.10 Atherosclerotic heart disease of native coronary artery without angina pectoris; Z93.0 Tracheostomy status; Z93.1 Gastrostomy status; Z79.84 Long term (current) use of oral hypoglycemic drugs; Z79.891 Long term (current) use of opiate analgesic; Z79.899 Other long term (current) drug therapy; Z79.1 Long term (current) use of non-steroidal anti-inflammatories (NSAID); Z79.83 Long term (current) use of bisphosphonates; Z79.4 Long term (current) use of insulin; Z79.810 Long term (current) use of selective estrogen receptor modulators (SERMs); Z79.52 Long term (current) use of systemic steroids; Z68.26 Body mass index [BMI] 26.0-26.9, adult
CPT/HCPCS: 36415; 71045; 80053; 82270; 82962; 83036; 83605; 83735; 83880; 84134; 84145; 84484; 85025; 86850; 86900; 86920; 93005; 93970; 94003; 94640; 96365; 99291; J1815; J1956; J3480; P9016

== ENCOUNTER 2019-10-16 17:55 | Inpatient (IN) | payer MEDICARE, MEDICAID ==
[~2019-10-16] VITALS: Ht 162.6 cm; Wt 71.7 kg
[~2019-10-16 17:55] MED LIST changes: -OMEP20TA15 PO; +PANT40TA4 MT; +SUCR1TAB MT
[2019-10-16 18:39] LABS: BASOPHILS % 0.5 % (0.0-2.0); EOSINOPHILS % 1.2 % (0.0-5.0); HEMATOCRIT. 21.7 % (42.0-52.0); LYMPHOCYTES % 11.4 % (20.0-50.0); MEAN CORPUSCULAR HEMOGLOBIN 29.2 pg (28.0-32.0); MEAN CORPUSCULAR VOLUME 93.2 fL (80.0-94.0); MEAN PLATELET VOLUME 8.4 fl (7.4-10.4); NEUTROPHILS % 75.9 % (40.0-76.0); PLATELET 388 x1000/uL (130-400); RED BLOOD CELL COUNT 2.33 mill/uL (4.7-6.1); RED CELL DISTRIBUTION WIDTH 16.8 % (11.6-14.6)
[2019-10-16 18:41] LABS: CHLORIDE 98 mEq/L (98-107)
[2019-10-16 18:43] LABS: HEMOGLOBIN. 6.8 g/dL (14.0-18.0)
[2019-10-16] MEDS ORDERED: MORPHINE SULFATE 2 MG/ML CPJ (NOT FOR IM USE) IV ONE (23:45)
[2019-10-17] VITALS (7 sets, daily range): BP systolic 88–118; BP diastolic 44–80
[2019-10-17] MEDS: INSULIN LISPRO 100 UNITS/ML SUBCUT SCH ×3 (06:00→17:54)
[2019-10-17] MEDS ORDERED: DEXTROSE 50% WATER 50ML SYRINGE IV PRN (06:00)
[2019-10-17] MEDS ORDERED: IPRATROPIUM/ALBUTEROL 0.5-3(2.5)MG/3ML NEB HHN PRN ×2 (06:00→16:15)
[2019-10-17 06:11] LABS: BASOPHILS % 0.7 % (0.0-2.0); EOSINOPHILS % 1.3 % (0.0-5.0); HEMATOCRIT. 26.1 % (42.0-52.0); HEMOGLOBIN. 8.5 g/dL (14.0-18.0); LYMPHOCYTES % 9.8 % (20.0-50.0); MEAN CORPUSCULAR HEMOGLOBIN 28.6 pg (28.0-32.0); MEAN CORPUSCULAR VOLUME 87.6 fL (80.0-94.0); MEAN PLATELET VOLUME 8.3 fl (7.4-10.4); MONOCYTES % 11.2 % (2.0-8.0); PLATELET 319 x1000/uL (130-400); RED BLOOD CELL COUNT 2.98 mill/uL (4.7-6.1); RED CELL DISTRIBUTION WIDTH 20.7 % (11.6-14.6)
[2019-10-17 06:12] LABS: CHLORIDE 97 mEq/L (98-107)
[2019-10-17] MEDS ORDERED: BISACODYL 10MG SUPP RC PRN (06:15)
[2019-10-17] MEDS: BLOOD SUGAR DIAGNOSTIC STRIP TEST SCH ×3 (06:27→17:54)
[2019-10-17] MEDS ORDERED: DIPHENHYDRAMINE 50MG/ML VIAL IV PRN (06:30)
[2019-10-17] MEDS: DEXT 5%/0.45% NACL 1000ML 1,000 ML IV SCH ×2 (07:01→19:50)
[2019-10-17] MEDS: PANTOPRAZOLE 40MG DR TABLET PO SCH ×2 (07:30→16:57)
[2019-10-17] MEDS ORDERED: ALBUTEROL (0.083%) 2.5MG/3ML NEB HHN SCH (08:00)
[2019-10-17] MEDS: FERROUS SULFATE 325MG TABLET PO SCH (08:00)
[2019-10-17] MEDS ORDERED: SALMETEROL IH SCH (09:00)
[2019-10-17] MEDS: SUCRALFATE 1G TABLET GT SCH ×4 (09:00→21:00)
[2019-10-17] MEDS: DOCUSATE SODIUM 250MG CAPSULE PO SCH (09:00)
[2019-10-17] MEDS ORDERED: [UNRECOGNIZED DRUG - OTHER] IH SCH (09:00)
[2019-10-17] MEDS: CHOLECALCIFEROL (D3) 1000 UNIT TABLET PO SCH (09:00)
[2019-10-17] MEDS ORDERED: NYSTATIN 100,000 UNITS/GM CREAM 15GM TOP SCH (09:00)
[2019-10-17] MEDS ORDERED: FLUTICASONE IH SCH (09:00)
[2019-10-17] MEDS: CLONAZEPAM 1MG TABLET PO SCH ×2 (09:00→21:00)
[2019-10-17] MEDS: MULTIVITAMINS,THER W-MINERALS TABLET PO SCH (09:00)
[2019-10-17] MEDS: DULOXETINE HCL 60MG DR CAPSULE PO SCH ×2 (09:00→21:00)
[2019-10-17] MEDS: BUDESONIDE 0.5MG/2ML NEB HHN SCH ×2 (11:53→20:30)
[2019-10-17 16:20] LABS: BG BASE EXCESS 6.3 mmol/L (-2.0-2.0); BG CARBOXYHEMOGLOBIN 0.2 % (0.5-1.5); BG DEOXYHEMOGLOBIN 1.6 % (0.0-5.0); BG HCO3 ACT 31.7 mmol/L (22.0-26.0); BG OXYGEN SATURATION 98.4 % (92.0-98.5); BG OXYHEMOGLOBIN 98.2 % (94.0-97.0); BG PCO2 50.1 mmHg (35.0-45.0); BG PH 7.419 (7.350-7.450); BG PO2 113.1 mmHg (75.0-100.0); BG SAMPLE SITE RIGHT RADIAL; BG TIDAL VOLUME(mL) 500 mL; BG TOTAL HEMOGLOBIN 9.6 g/dL (12.0-18.0); BG VENT MODE VENT - A/C; BG VENT RATE 18 set
[2019-10-17] MEDS: MONTELUKAST SODIUM 10MG TABLET PO SCH (16:57)
[2019-10-17] MEDS: IPRATROPIUM/ALBUTEROL 0.5-3(2.5)MG/3ML NEB HHN SCH (20:29)
[2019-10-17] MEDS: ATORVASTATIN CALCIUM 20MG TABLET PO SCH (21:00)
[2019-10-17] MEDS: OXYBUTYNIN CHLORIDE 5MG TABLET PO SCH (21:00)
[2019-10-18] VITALS (10 sets, daily range): BP systolic 81–119; BP diastolic 32–81
[2019-10-18] MEDS ORDERED: MORPHINE SULFATE 2 MG/ML CPJ (NOT FOR IM USE) IV PRN
[2019-10-18] MEDS ORDERED: OLANZAPINE 10 MG/VIAL IM NR (00:30)
[2019-10-18] MEDS: BLOOD SUGAR DIAGNOSTIC STRIP TEST SCH ×4 (00:40→17:49)
[2019-10-18] MEDS: IPRATROPIUM/ALBUTEROL 0.5-3(2.5)MG/3ML NEB HHN SCH ×4 (01:53→20:35)
[2019-10-18] MEDS ORDERED: HALOPERIDOL LACTATE 5MG/ML VIAL IM PRN (05:00)
[2019-10-18] MEDS ORDERED: HALOPERIDOL LACTATE 5MG/ML VIAL IM NR (05:00)
[2019-10-18] MEDS: INSULIN LISPRO 100 UNITS/ML SUBCUT SCH ×4 (06:00→17:49)
[2019-10-18] MEDS: PANTOPRAZOLE 40MG DR TABLET PO SCH ×2 (07:30→17:00)
[2019-10-18] MEDS: FERROUS SULFATE 325MG TABLET PO SCH (08:00)
[2019-10-18] MEDS: BUDESONIDE 0.5MG/2ML NEB HHN SCH ×2 (08:40→20:34)
[2019-10-18] MEDS: SUCRALFATE 1G TABLET GT SCH ×3 (08:58→17:00)
[2019-10-18] MEDS: MULTIVITAMINS,THER W-MINERALS TABLET PO SCH (08:59)
[2019-10-18] MEDS: CLONAZEPAM 1MG TABLET PO SCH ×2 (08:59→20:18)
[2019-10-18] MEDS: DOCUSATE SODIUM 250MG CAPSULE PO SCH (08:59)
[2019-10-18] MEDS: CHOLECALCIFEROL (D3) 1000 UNIT TABLET PO SCH (08:59)
[2019-10-18] MEDS: DULOXETINE HCL 60MG DR CAPSULE PO SCH ×2 (08:59→20:19)
[2019-10-18 09:37] LABS: BASOPHILS % 0.6 % (0.0-2.0); EOSINOPHILS % 2.9 % (0.0-5.0); HEMATOCRIT. 32.6 % (42.0-52.0); HEMOGLOBIN. 10.5 g/dL (14.0-18.0); LYMPHOCYTES % 9.9 % (20.0-50.0); MEAN CORPUSCULAR HEMOGLOBIN 28.4 pg (28.0-32.0); MEAN CORPUSCULAR VOLUME 87.9 fL (80.0-94.0); MEAN PLATELET VOLUME 8.3 fl (7.4-10.4); MONOCYTES % 12.6 % (2.0-8.0); PLATELET 424 x1000/uL (130-400); RED CELL DISTRIBUTION WIDTH 20.1 % (11.6-14.6)
[2019-10-18 09:42] LABS: CHLORIDE 99 mEq/L (98-107)
[2019-10-18] MEDS ORDERED: SIMETHICONE 40 MG/0.6 ML 30ML ONE (12:53)
[2019-10-18] MEDS ORDERED: ROCURONIUM BROMIDE 10MG/ML VIAL 5ML IV ONE (12:57)
[2019-10-18] MEDS ORDERED: PROPOFOL 200MG/20ML VIAL IV ONE (12:57)
[2019-10-18] MEDS: MONTELUKAST SODIUM 10MG TABLET PO SCH (17:00)
[2019-10-18] MEDS: PANTOPRAZOLE SODIUM 40 MG/VIAL IV SCH (20:15)
[2019-10-18] MEDS: SUCRALFATE 1 G/10 ML UDC GT SCH (20:15)
[2019-10-18] MEDS: OXYBUTYNIN CHLORIDE 5MG TABLET PO SCH (20:18)
[2019-10-18] MEDS: ATORVASTATIN CALCIUM 20MG TABLET PO SCH (20:18)
[2019-10-18] MEDS: METOCLOPRAMIDE HCL 10MG/2ML VIAL IV SCH (20:18)
[2019-10-18] MEDS: DEXT 5%/0.45% NACL 1000ML 1,000 ML IV SCH (20:19)
[2019-10-19] VITALS (12 sets, daily range): BP systolic 95–127; BP diastolic 53–78
[2019-10-19] MEDS: SUCRALFATE 1 G/10 ML UDC GT SCH ×4 (02:00→16:27)
[2019-10-19] MEDS: METOCLOPRAMIDE HCL 10MG/2ML VIAL IV SCH ×4 (02:00→16:28)
[2019-10-19] MEDS: IPRATROPIUM/ALBUTEROL 0.5-3(2.5)MG/3ML NEB HHN SCH ×4 (02:16→19:56)
[2019-10-19] MEDS: INSULIN LISPRO 100 UNITS/ML SUBCUT SCH ×4 (05:43→16:38)
[2019-10-19] MEDS: BLOOD SUGAR DIAGNOSTIC STRIP TEST SCH ×4 (05:43→16:40)
[2019-10-19 06:38] LABS: INR 0.9; PROTHROMBIN TIME 10.3 sec (9.6-11.0)
[2019-10-19 06:39] LABS: HEMATOCRIT. 29.7 % (42.0-52.0); HEMOGLOBIN. 9.8 g/dL (14.0-18.0); MEAN CORPUSCULAR HEMOGLOBIN 28.8 pg (28.0-32.0); MEAN CORPUSCULAR VOLUME 87.3 fL (80.0-94.0); MEAN PLATELET VOLUME 8.1 fl (7.4-10.4); PLATELET 411 x1000/uL (130-400); RED CELL DISTRIBUTION WIDTH 19.9 % (11.6-14.6)
[2019-10-19 06:55] LABS: CHLORIDE 99 mEq/L (98-107)
[2019-10-19] MEDS: BUDESONIDE 0.5MG/2ML NEB HHN SCH ×2 (08:07→19:56)
[2019-10-19] MEDS: CLONAZEPAM 1MG TABLET PO SCH ×2 (08:51→21:45)
[2019-10-19] MEDS: FERROUS SULFATE 325MG TABLET PO SCH (08:51)
[2019-10-19] MEDS: MULTIVITAMINS,THER W-MINERALS TABLET PO SCH (08:51)
[2019-10-19] MEDS: CHOLECALCIFEROL (D3) 1000 UNIT TABLET PO SCH (08:52)
[2019-10-19] MEDS: PANTOPRAZOLE SODIUM 40 MG/VIAL IV SCH ×2 (08:52→16:27)
[2019-10-19] MEDS: DOCUSATE SODIUM 250MG CAPSULE PO SCH (08:54)
[2019-10-19] MEDS: DULOXETINE HCL 60MG DR CAPSULE PO SCH ×2 (08:55→21:00)
[2019-10-19 10:14] LABS: PLATELET ESTIMATE SLIGHTLY INCREASED
[2019-10-19] MEDS: DEXT 5%/0.45% NACL 1000ML 1,000 ML IV SCH (13:15)
[2019-10-19] MEDS: MONTELUKAST SODIUM 10MG TABLET PO SCH (16:28)
[2019-10-19] MEDS: ATORVASTATIN CALCIUM 20MG TABLET PO SCH (21:46)
[2019-10-19] MEDS: OXYBUTYNIN CHLORIDE 5MG TABLET PO SCH (21:46)
[2019-10-19] MEDS: HYDROCODONE/ACETAMINOPHEN 5/325MG TABLET PO PRN (21:46)
[2019-10-20] VITALS (12 sets, daily range): BP systolic 90–124; BP diastolic 42–98
[2019-10-20] MEDS: BLOOD SUGAR DIAGNOSTIC STRIP TEST SCH ×4 (00:20→18:15)
[2019-10-20] MEDS: METOCLOPRAMIDE HCL 10MG/2ML VIAL IV SCH ×4 (00:20→18:14)
[2019-10-20] MEDS: SUCRALFATE 1 G/10 ML UDC GT SCH ×4 (00:20→18:14)
[2019-10-20] MEDS: INSULIN LISPRO 100 UNITS/ML SUBCUT SCH ×4 (00:23→18:00)
[2019-10-20] MEDS: IPRATROPIUM/ALBUTEROL 0.5-3(2.5)MG/3ML NEB HHN SCH ×5 (01:56→21:09)
[2019-10-20 06:37] LABS: CHLORIDE 102 mEq/L (98-107)
[2019-10-20] MEDS: BUDESONIDE 0.5MG/2ML NEB HHN SCH (08:28)
[2019-10-20 08:31] LABS: HEMATOCRIT. 29.1 % (42.0-52.0); HEMOGLOBIN. 9.4 g/dL (14.0-18.0); MEAN CORPUSCULAR HEMOGLOBIN 28.6 pg (28.0-32.0); MEAN CORPUSCULAR VOLUME 88.1 fL (80.0-94.0); MEAN PLATELET VOLUME 7.6 fl (7.4-10.4); PLATELET 412 x1000/uL (130-400); RED CELL DISTRIBUTION WIDTH 19.5 % (11.6-14.6)
[2019-10-20] MEDS: CLONAZEPAM 1MG TABLET PO SCH ×2 (09:16→21:06)
[2019-10-20] MEDS: DOCUSATE SODIUM 250MG CAPSULE PO SCH (09:16)
[2019-10-20] MEDS: CHOLECALCIFEROL (D3) 1000 UNIT TABLET PO SCH (09:16)
[2019-10-20] MEDS: DULOXETINE HCL 60MG DR CAPSULE PO SCH ×2 (09:16→21:06)
[2019-10-20 09:17] LABS: PLATELET ESTIMATE INCREASED
[2019-10-20] MEDS: FERROUS SULFATE 325MG TABLET PO SCH (09:17)
[2019-10-20] MEDS: MULTIVITAMINS,THER W-MINERALS TABLET PO SCH (09:17)
[2019-10-20] MEDS: PANTOPRAZOLE SODIUM 40 MG/VIAL IV SCH ×2 (09:18→18:15)
[2019-10-20] MEDS: ACETAMINOPHEN 650MG/20.3ML UDC PO PRN (09:19)
[2019-10-20] MEDS: MONTELUKAST SODIUM 10MG TABLET PO SCH (18:14)
[2019-10-20] MEDS: ATORVASTATIN CALCIUM 20MG TABLET PO SCH (21:06)
[2019-10-20] MEDS: OXYBUTYNIN CHLORIDE 5MG TABLET PO SCH (21:06)
[2019-10-21] VITALS (12 sets, daily range): BP systolic 87–132; BP diastolic 43–80
[2019-10-21] MEDS: BLOOD SUGAR DIAGNOSTIC STRIP TEST SCH ×5 (00:43→23:15)
[2019-10-21] MEDS: METOCLOPRAMIDE HCL 10MG/2ML VIAL IV SCH ×5 (00:43→23:15)
[2019-10-21] MEDS: SUCRALFATE 1 G/10 ML UDC GT SCH ×5 (00:43→23:14)
[2019-10-21] MEDS: IPRATROPIUM/ALBUTEROL 0.5-3(2.5)MG/3ML NEB HHN SCH ×4 (03:03→20:10)
[2019-10-21] MEDS: INSULIN LISPRO 100 UNITS/ML SUBCUT SCH ×5 (05:58→23:15)
[2019-10-21] MEDS: DOCUSATE SODIUM 250MG CAPSULE PO SCH (09:01)
[2019-10-21] MEDS: CLONAZEPAM 1MG TABLET PO SCH ×2 (09:01→20:56)
[2019-10-21] MEDS: PANTOPRAZOLE SODIUM 40 MG/VIAL IV SCH ×2 (09:01→17:36)
[2019-10-21] MEDS: FERROUS SULFATE 325MG TABLET PO SCH (09:01)
[2019-10-21] MEDS: MULTIVITAMINS,THER W-MINERALS TABLET PO SCH (09:01)
[2019-10-21] MEDS: CHOLECALCIFEROL (D3) 1000 UNIT TABLET PO SCH (09:01)
[2019-10-21 09:24] LABS: CHLORIDE 96 mEq/L (98-107)
[2019-10-21 09:30] LABS: HEMATOCRIT. 26.9 % (42.0-52.0); HEMOGLOBIN. 8.8 g/dL (14.0-18.0); MEAN CORPUSCULAR HEMOGLOBIN 28.6 pg (28.0-32.0); MEAN CORPUSCULAR VOLUME 87.4 fL (80.0-94.0); MEAN PLATELET VOLUME 7.9 fl (7.4-10.4); PLATELET 389 x1000/uL (130-400); RED BLOOD CELL COUNT 3.08 mill/uL (4.7-6.1); RED CELL DISTRIBUTION WIDTH 19.2 % (11.6-14.6)
[2019-10-21] MEDS: DULOXETINE HCL 60MG DR CAPSULE PO SCH ×2 (11:14→20:56)
[2019-10-21] MEDS: MONTELUKAST SODIUM 10MG TABLET PO SCH (17:36)
[2019-10-21] MEDS: ATORVASTATIN CALCIUM 20MG TABLET PO SCH (20:56)
[2019-10-21] MEDS: OXYBUTYNIN CHLORIDE 5MG TABLET PO SCH (20:56)
[2019-10-22] VITALS (12 sets, daily range): BP systolic 93–117; BP diastolic 49–83
[2019-10-22] MEDS: HYDROCODONE/ACETAMINOPHEN 5/325MG TABLET PO PRN (01:37)
[2019-10-22] MEDS: IPRATROPIUM/ALBUTEROL 0.5-3(2.5)MG/3ML NEB HHN SCH ×4 (02:14→20:43)
[2019-10-22 04:29] LABS: PLATELET ESTIMATE NORMAL
[2019-10-22] MEDS: BLOOD SUGAR DIAGNOSTIC STRIP TEST SCH ×3 (05:24→17:10)
[2019-10-22] MEDS: METOCLOPRAMIDE HCL 10MG/2ML VIAL IV SCH ×4 (05:24→23:51)
[2019-10-22] MEDS: INSULIN LISPRO 100 UNITS/ML SUBCUT SCH ×4 (05:24→23:52)
[2019-10-22] MEDS: SUCRALFATE 1 G/10 ML UDC GT SCH ×4 (05:24→23:51)
[2019-10-22] MEDS: MULTIVITAMINS,THER W-MINERALS TABLET PO SCH (08:48)
[2019-10-22] MEDS: FERROUS SULFATE 325MG TABLET PO SCH (08:48)
[2019-10-22] MEDS: DULOXETINE HCL 60MG DR CAPSULE PO SCH ×2 (08:48→20:06)
[2019-10-22] MEDS: DOCUSATE SODIUM 250MG CAPSULE PO SCH (08:48)
[2019-10-22] MEDS: CHOLECALCIFEROL (D3) 1000 UNIT TABLET PO SCH (08:48)
[2019-10-22] MEDS: CLONAZEPAM 1MG TABLET PO SCH (08:49)
[2019-10-22] MEDS: PANTOPRAZOLE SODIUM 40 MG/VIAL IV SCH ×2 (09:10→17:15)
[2019-10-22 15:42] LABS: BASOPHILS % 0.7 % (0.0-2.0); EOSINOPHILS % 1.8 % (0.0-5.0); HEMATOCRIT. 27.8 % (42.0-52.0); LYMPHOCYTES % 11.5 % (20.0-50.0); MEAN CORPUSCULAR HEMOGLOBIN 28.3 pg (28.0-32.0); MEAN CORPUSCULAR VOLUME 86.9 fL (80.0-94.0); MEAN PLATELET VOLUME 8.1 fl (7.4-10.4); MONOCYTES % 12.3 % (2.0-8.0); NEUTROPHILS % 73.7 % (40.0-76.0); PLATELET 374 x1000/uL (130-400); RED BLOOD CELL COUNT 3.19 mill/uL (4.7-6.1); RED CELL DISTRIBUTION WIDTH 18.4 % (11.6-14.6)
[2019-10-22 15:49] LABS: CHLORIDE 97 mEq/L (98-107)
[2019-10-22] MEDS: MONTELUKAST SODIUM 10MG TABLET PO SCH (17:15)
[2019-10-22] MEDS: ATORVASTATIN CALCIUM 20MG TABLET PO SCH (20:06)
[2019-10-22] MEDS: OXYBUTYNIN CHLORIDE 5MG TABLET PO SCH (20:06)
[2019-10-23] VITALS (12 sets, daily range): BP systolic 94–123; BP diastolic 55–73
[2019-10-23] MEDS: BLOOD SUGAR DIAGNOSTIC STRIP TEST SCH ×5 (00:01→23:59)
[2019-10-23] MEDS: IPRATROPIUM/ALBUTEROL 0.5-3(2.5)MG/3ML NEB HHN SCH ×4 (01:57→20:51)
[2019-10-23] MEDS: ACETAMINOPHEN 650MG/20.3ML UDC PO PRN ×2 (02:47→09:01)
[2019-10-23] MEDS: METOCLOPRAMIDE HCL 10MG/2ML VIAL IV SCH ×4 (05:10→23:59)
[2019-10-23] MEDS: SUCRALFATE 1 G/10 ML UDC GT SCH ×4 (05:10→23:58)
[2019-10-23] MEDS: INSULIN LISPRO 100 UNITS/ML SUBCUT SCH ×4 (05:11→23:59)
[2019-10-23] MEDS: CHOLECALCIFEROL (D3) 1000 UNIT TABLET PO SCH (09:01)
[2019-10-23] MEDS: FERROUS SULFATE 325MG TABLET PO SCH (09:01)
[2019-10-23] MEDS: PANTOPRAZOLE SODIUM 40 MG/VIAL IV SCH ×2 (09:01→17:12)
[2019-10-23] MEDS: DOCUSATE SODIUM 250MG CAPSULE PO SCH (09:01)
[2019-10-23] MEDS: DULOXETINE HCL 60MG DR CAPSULE PO SCH ×2 (09:01→21:15)
[2019-10-23] MEDS: MULTIVITAMINS,THER W-MINERALS TABLET PO SCH (09:02)
[2019-10-23 09:41] LABS: BASOPHILS % 0.7 % (0.0-2.0); EOSINOPHILS % 1.4 % (0.0-5.0); HEMATOCRIT. 29.8 % (42.0-52.0); HEMOGLOBIN. 9.5 g/dL (14.0-18.0); LYMPHOCYTES % 9.3 % (20.0-50.0); MEAN CORPUSCULAR HEMOGLOBIN 27.7 pg (28.0-32.0); MEAN CORPUSCULAR VOLUME 87.4 fL (80.0-94.0); MONOCYTES % 13.7 % (2.0-8.0); NEUTROPHILS % 74.9 % (40.0-76.0); PLATELET 391 x1000/uL (130-400); RED BLOOD CELL COUNT 3.41 mill/uL (4.7-6.1); RED CELL DISTRIBUTION WIDTH 18.7 % (11.6-14.6)
[2019-10-23 09:58] LABS: CHLORIDE 98 mEq/L (98-107)
[2019-10-23] MEDS: MONTELUKAST SODIUM 10MG TABLET PO SCH (17:12)
[2019-10-23] MEDS: OXYBUTYNIN CHLORIDE 5MG TABLET PO SCH (21:15)
[2019-10-23] MEDS: ATORVASTATIN CALCIUM 20MG TABLET PO SCH (21:15)
[2019-10-24] VITALS (12 sets, daily range): BP systolic 113–141; BP diastolic 68–83
[2019-10-24] MEDS: IPRATROPIUM/ALBUTEROL 0.5-3(2.5)MG/3ML NEB HHN SCH ×4 (01:52→20:47)
[2019-10-24] MEDS: INSULIN LISPRO 100 UNITS/ML SUBCUT SCH ×4 (06:00→23:59)
[2019-10-24] MEDS: BLOOD SUGAR DIAGNOSTIC STRIP TEST SCH ×4 (06:01→23:59)
[2019-10-24] MEDS: SUCRALFATE 1 G/10 ML UDC GT SCH ×4 (06:01→23:59)
[2019-10-24] MEDS: METOCLOPRAMIDE HCL 10MG/2ML VIAL IV SCH ×4 (06:01→23:59)
[2019-10-24 08:40] LABS: HEMATOCRIT. 31.1 % (42.0-52.0); HEMOGLOBIN. 10.1 g/dL (14.0-18.0); MEAN CORPUSCULAR HEMOGLOBIN 28.1 pg (28.0-32.0); MEAN CORPUSCULAR VOLUME 86.8 fL (80.0-94.0); MEAN PLATELET VOLUME 7.5 fl (7.4-10.4); PLATELET 436 x1000/uL (130-400); RED BLOOD CELL COUNT 3.58 mill/uL (4.7-6.1); RED CELL DISTRIBUTION WIDTH 17.8 % (11.6-14.6)
[2019-10-24 08:53] LABS: CHLORIDE 95 mEq/L (98-107)
[2019-10-24] MEDS: PANTOPRAZOLE SODIUM 40 MG/VIAL IV SCH ×2 (08:59→17:45)
[2019-10-24] MEDS: FERROUS SULFATE 325MG TABLET PO SCH (08:59)
[2019-10-24] MEDS: MULTIVITAMINS,THER W-MINERALS TABLET PO SCH (09:00)
[2019-10-24] MEDS: CHOLECALCIFEROL (D3) 1000 UNIT TABLET PO SCH (09:00)
[2019-10-24] MEDS: DOCUSATE SODIUM 250MG CAPSULE PO SCH (09:00)
[2019-10-24] MEDS: DULOXETINE HCL 60MG DR CAPSULE PO SCH ×2 (09:00→20:30)
[2019-10-24 10:23] LABS: PLATELET ESTIMATE SLIGHTLY INCREASED
[2019-10-24] MEDS: MONTELUKAST SODIUM 10MG TABLET PO SCH (17:45)
[2019-10-24] MEDS: OXYBUTYNIN CHLORIDE 5MG TABLET PO SCH (20:31)
[2019-10-24] MEDS: ATORVASTATIN CALCIUM 20MG TABLET PO SCH (20:31)
[2019-10-25] VITALS (13 sets, daily range): BP systolic 96–136; BP diastolic 63–90
[2019-10-25] MEDS: IPRATROPIUM/ALBUTEROL 0.5-3(2.5)MG/3ML NEB HHN SCH ×4 (01:55→20:10)
[2019-10-25] MEDS: BLOOD SUGAR DIAGNOSTIC STRIP TEST SCH ×4 (06:20→23:55)
[2019-10-25] MEDS: METOCLOPRAMIDE HCL 10MG/2ML VIAL IV SCH ×4 (06:20→23:54)
[2019-10-25] MEDS: SUCRALFATE 1 G/10 ML UDC GT SCH ×4 (06:20→23:54)
[2019-10-25] MEDS: INSULIN LISPRO 100 UNITS/ML SUBCUT SCH ×4 (06:21→23:55)
[2019-10-25 08:30] LABS: CHLORIDE 96 mEq/L (98-107)
[2019-10-25 08:40] LABS: HEMATOCRIT. 33.9 % (42.0-52.0); HEMOGLOBIN. 10.9 g/dL (14.0-18.0); MEAN CORPUSCULAR HEMOGLOBIN 28.3 pg (28.0-32.0); MEAN PLATELET VOLUME 7.6 fl (7.4-10.4); PLATELET 390 x1000/uL (130-400); RED BLOOD CELL COUNT 3.86 mill/uL (4.7-6.1); RED CELL DISTRIBUTION WIDTH 18.5 % (11.6-14.6)
[2019-10-25] MEDS: PANTOPRAZOLE SODIUM 40 MG/VIAL IV SCH ×2 (08:45→17:29)
[2019-10-25] MEDS: DOCUSATE SODIUM 250MG CAPSULE PO SCH (08:45)
[2019-10-25] MEDS: DULOXETINE HCL 60MG DR CAPSULE PO SCH ×2 (08:46→21:24)
[2019-10-25] MEDS: FERROUS SULFATE 325MG TABLET PO SCH (08:46)
[2019-10-25] MEDS: MULTIVITAMINS,THER W-MINERALS TABLET PO SCH (08:46)
[2019-10-25] MEDS: CHOLECALCIFEROL (D3) 1000 UNIT TABLET PO SCH (08:46)
[2019-10-25 16:59] LABS: PLATELET ESTIMATE NORMAL
[2019-10-25] MEDS: MONTELUKAST SODIUM 10MG TABLET PO SCH (17:29)
[2019-10-25] MEDS: ATORVASTATIN CALCIUM 20MG TABLET PO SCH (21:24)
[2019-10-25] MEDS: OXYBUTYNIN CHLORIDE 5MG TABLET PO SCH (21:24)
[2019-10-26] VITALS (12 sets, daily range): BP systolic 91–145; BP diastolic 57–91
[2019-10-26] MEDS: IPRATROPIUM/ALBUTEROL 0.5-3(2.5)MG/3ML NEB HHN SCH ×4 (02:15→21:09)
[2019-10-26] MEDS: METOCLOPRAMIDE HCL 10MG/2ML VIAL IV SCH ×3 (05:47→17:36)
[2019-10-26] MEDS: SUCRALFATE 1 G/10 ML UDC GT SCH ×3 (05:47→17:36)
[2019-10-26 05:48] LABS: CHLORIDE 94 mEq/L (98-107)
[2019-10-26] MEDS: BLOOD SUGAR DIAGNOSTIC STRIP TEST SCH ×3 (05:48→18:00)
[2019-10-26] MEDS: INSULIN LISPRO 100 UNITS/ML SUBCUT SCH ×3 (05:48→18:00)
[2019-10-26 06:25] LABS: HEMATOCRIT. 32.2 % (42.0-52.0); HEMOGLOBIN. 10.6 g/dL (14.0-18.0); MEAN CORPUSCULAR HEMOGLOBIN 28.6 pg (28.0-32.0); MEAN CORPUSCULAR VOLUME 87.2 fL (80.0-94.0); MEAN PLATELET VOLUME 8.2 fl (7.4-10.4); PLATELET 412 x1000/uL (130-400); RED BLOOD CELL COUNT 3.69 mill/uL (4.7-6.1); RED CELL DISTRIBUTION WIDTH 18.2 % (11.6-14.6)
[2019-10-26] MEDS: CHOLECALCIFEROL (D3) 1000 UNIT TABLET PO SCH (08:25)
[2019-10-26] MEDS: MULTIVITAMINS,THER W-MINERALS TABLET PO SCH (08:25)
[2019-10-26] MEDS: PANTOPRAZOLE SODIUM 40 MG/VIAL IV SCH ×2 (08:25→17:36)
[2019-10-26] MEDS: FERROUS SULFATE 325MG TABLET PO SCH (08:26)
[2019-10-26] MEDS: DOCUSATE SODIUM 250MG CAPSULE PO SCH (08:26)
[2019-10-26] MEDS: DULOXETINE HCL 60MG DR CAPSULE PO SCH ×2 (08:46→20:11)
[2019-10-26 12:33] LABS: PLATELET ESTIMATE SLIGHTLY INCREASED
[2019-10-26] MEDS: MONTELUKAST SODIUM 10MG TABLET PO SCH (17:36)
[2019-10-26] MEDS: ATORVASTATIN CALCIUM 20MG TABLET PO SCH (20:11)
[2019-10-26] MEDS: OXYBUTYNIN CHLORIDE 5MG TABLET PO SCH (20:11)
[2019-10-27] VITALS (10 sets, daily range): BP systolic 92–130; BP diastolic 55–72
[2019-10-27] MEDS: BLOOD SUGAR DIAGNOSTIC STRIP TEST SCH ×4 (00:42→16:46)
[2019-10-27] MEDS: METOCLOPRAMIDE HCL 10MG/2ML VIAL IV SCH ×5 (00:42→23:53)
[2019-10-27] MEDS: SUCRALFATE 1 G/10 ML UDC GT SCH ×5 (00:42→23:53)
[2019-10-27] MEDS: IPRATROPIUM/ALBUTEROL 0.5-3(2.5)MG/3ML NEB HHN SCH ×3 (02:14→20:09)
[2019-10-27] MEDS: INSULIN LISPRO 100 UNITS/ML SUBCUT SCH ×4 (05:26→16:46)
[2019-10-27 06:22] LABS: HEMATOCRIT. 31.1 % (42.0-52.0); HEMOGLOBIN. 9.6 g/dL (14.0-18.0); MEAN CORPUSCULAR HEMOGLOBIN 27.3 pg (28.0-32.0); MEAN CORPUSCULAR VOLUME 88.3 fL (80.0-94.0); MEAN PLATELET VOLUME 8.5 fl (7.4-10.4); PLATELET 368 x1000/uL (130-400); RED BLOOD CELL COUNT 3.53 mill/uL (4.7-6.1); RED CELL DISTRIBUTION WIDTH 18.1 % (11.6-14.6)
[2019-10-27 07:25] LABS: CHLORIDE 98 mEq/L (98-107)
[2019-10-27] MEDS: FERROUS SULFATE 325MG TABLET PO SCH (08:12)
[2019-10-27] MEDS: ACETAMINOPHEN 650MG/20.3ML UDC PO PRN (08:40)
[2019-10-27] MEDS: DOCUSATE SODIUM 250MG CAPSULE PO SCH (08:40)
[2019-10-27] MEDS: MULTIVITAMINS,THER W-MINERALS TABLET PO SCH (08:41)
[2019-10-27] MEDS: DULOXETINE HCL 60MG DR CAPSULE PO SCH ×2 (08:41→21:30)
[2019-10-27] MEDS: PANTOPRAZOLE SODIUM 40 MG/VIAL IV SCH ×2 (08:42→16:45)
[2019-10-27] MEDS: CHOLECALCIFEROL (D3) 1000 UNIT TABLET PO SCH (08:42)
[2019-10-27 09:22] LABS: PLATELET ESTIMATE NORMAL
[2019-10-27] MEDS: MONTELUKAST SODIUM 10MG TABLET PO SCH (16:45)
[2019-10-27] MEDS: ATORVASTATIN CALCIUM 20MG TABLET PO SCH (21:30)
[2019-10-27] MEDS: OXYBUTYNIN CHLORIDE 5MG TABLET PO SCH (21:30)
[2019-10-28] VITALS (12 sets, daily range): BP systolic 98–121; BP diastolic 44–75
[2019-10-28] MEDS: BLOOD SUGAR DIAGNOSTIC STRIP TEST SCH ×4 (00:12→18:28)
[2019-10-28] MEDS: IPRATROPIUM/ALBUTEROL 0.5-3(2.5)MG/3ML NEB HHN SCH ×3 (01:40→14:59)
[2019-10-28] MEDS: INSULIN LISPRO 100 UNITS/ML SUBCUT SCH ×4 (05:07→18:00)
[2019-10-28] MEDS: METOCLOPRAMIDE HCL 10MG/2ML VIAL IV SCH ×3 (05:09→18:53)
[2019-10-28] MEDS: SUCRALFATE 1 G/10 ML UDC GT SCH ×3 (05:09→18:53)
[2019-10-28] MEDS: CHOLECALCIFEROL (D3) 1000 UNIT TABLET PO SCH (08:35)
[2019-10-28] MEDS: PANTOPRAZOLE SODIUM 40 MG/VIAL IV SCH ×2 (08:35→18:53)
[2019-10-28] MEDS: FERROUS SULFATE 325MG TABLET PO SCH (08:35)
[2019-10-28] MEDS: DULOXETINE HCL 60MG DR CAPSULE PO SCH (08:35)
[2019-10-28] MEDS: MULTIVITAMINS,THER W-MINERALS TABLET PO SCH (08:35)
[2019-10-28] MEDS: DOCUSATE SODIUM 250MG CAPSULE PO SCH (08:35)
[2019-10-28] MEDS: MONTELUKAST SODIUM 10MG TABLET PO SCH (18:53)
== END 2019-10-28 21:15 | DRG 207 ==
LOC: ER 17:55 → 5EST 22:57 → ENRESERV 23:55 → CANRESERV 23:55 → EDBEDREQSVC 10-17 01:52 → ENRESERV 10-17 02:09
PROVIDERS: ADMIT Family Medicine Adult Medicine; ATTEND Family Medicine Adult Medicine
PROC: 5A1955Z Respiratory Ventilation, Greater than 96 Consecutive Hours (ICD-10-PCS; principal; 2019-10-16)
PROC: 30233N1 Transfusion of Nonautologous Red Blood Cells into Peripheral Vein, Percutaneous Approach (ICD-10-PCS; 2019-10-16)
PROC: 0DB78ZX Excision of Stomach, Pylorus, Via Natural or Artificial Opening Endoscopic, Diagnostic (ICD-10-PCS; 2019-10-18)
PROC: 0D768ZZ Dilation of Stomach, Via Natural or Artificial Opening Endoscopic (ICD-10-PCS; 2019-10-18)
PROC: 0BW1XFZ Revision of Tracheostomy Device in Trachea, External Approach (ICD-10-PCS; 2019-10-18)
DX: J95.01 Hemorrhage from tracheostomy stoma (principal); J96.22 Acute and chronic respiratory failure with hypercapnia; J18.9 Pneumonia, unspecified organism; K29.71 Gastritis, unspecified, with bleeding; K29.81 Duodenitis with bleeding; J96.21 Acute and chronic respiratory failure with hypoxia; D62 Acute posthemorrhagic anemia; I42.9 Cardiomyopathy, unspecified; Z99.11 Dependence on respirator [ventilator] status; J98.11 Atelectasis; J95.03 Malfunction of tracheostomy stoma; E11.9 Type 2 diabetes mellitus without complications; I27.20 Pulmonary hypertension, unspecified; I48.0 Paroxysmal atrial fibrillation; F31.9 Bipolar disorder, unspecified; E78.5 Hyperlipidemia, unspecified; I10 Essential (primary) hypertension; E83.41 Hypermagnesemia; F41.9 Anxiety disorder, unspecified; I08.2 Rheumatic disorders of both aortic and tricuspid valves; K20.9 Esophagitis, unspecified; N40.0 Benign prostatic hyperplasia without lower urinary tract symptoms; R13.10 Dysphagia, unspecified; I27.21 Secondary pulmonary arterial hypertension; J43.9 Emphysema, unspecified; R74.0 Nonspecific elevation of levels of transaminase and lactic acid dehydrogenase [LDH]; I95.9 Hypotension, unspecified; Y83.8 Other surgical procedures as the cause of abnormal reaction of the patient, or of later complication, without mention of misadventure at the time of the procedure; Z79.84 Long term (current) use of oral hypoglycemic drugs; Z79.899 Other long term (current) drug therapy; Z93.1 Gastrostomy status; Y92.89 Other specified places as the place of occurrence of the external cause
CPT/HCPCS: 36415; 36600; 71045; 74018; 80048; 80053; 82375; 82805; 82962; 83735; 83880; 84484; 85025; 86850; 86900; 86920; 88305; 88313; 93005; 93970; 94002; 94003; 94640; 99291; C9113; J1815; J2270; J2704; J2765; J3490; J7626; P9016

== ENCOUNTER 2020-02-01 16:26 | Emergency (ER) | payer MEDICARE, MEDICAID ==
[~2020-02-01] VITALS: Ht 172.7 cm; Wt 75.0 kg
[2020-02-01] MEDS ORDERED: SODIUM CHLORIDE 0.9% 500 ML IV ONE (18:04)
[2020-02-01 18:31] LABS: MEAN CORPUSCULAR VOLUME 93.2 fL (80.0-94.0); MEAN PLATELET VOLUME 9.1 fl (7.4-10.4); PLATELET 259 x1000/uL (130-400); RED BLOOD CELL COUNT 2.22 mill/uL (4.7-6.1); RED CELL DISTRIBUTION WIDTH 18.2 % (11.6-14.6)
[2020-02-01 18:35] LABS: CHLORIDE 109 mEq/L (98-107); INR 1.1; PROTHROMBIN TIME 11.4 sec (9.6-11.0)
[2020-02-01 18:38] LABS: HEMOGLOBIN. 6.9 g/dL (14.0-18.0)
[2020-02-01 18:39] LABS: HEMATOCRIT. 20.7 % (42.0-52.0)
[2020-02-01 19:21] LABS: PLATELET ESTIMATE NORMAL
[2020-02-01] MEDS ORDERED: ACETAMINOPHEN 325MG TABLET PO PRN (20:45)
[2020-02-01] MEDS ORDERED: ONDANSETRON HCL 4MG/2ML INJ IV PRN (20:45)
[2020-02-01] MEDS ORDERED: HYDROCODONE/ACETAMINOPHEN 5/325MG TABLET PO PRN (21:00)
[2020-02-01] MEDS ORDERED: ATORVASTATIN CALCIUM 20MG TABLET PO SCH (21:00)
[2020-02-01] MEDS ORDERED: BISACODYL 10MG SUPP RC PRN (21:00)
[2020-02-01] MEDS ORDERED: MONTELUKAST SODIUM 10MG TABLET PO SCH (21:00)
[2020-02-01] MEDS: CLONAZEPAM 1MG TABLET PO SCH (21:49)
[2020-02-01] MEDS: PANTOPRAZOLE 40MG DR TABLET PO SCH (21:50)
[2020-02-01] MEDS: DULOXETINE HCL 60MG DR CAPSULE PO SCH (21:51)
[2020-02-01] MEDS: SUCRALFATE 1G TABLET PEG SCH (21:51)
[2020-02-01] MEDS: SODIUM CHLORIDE 0.9% 1,000 ML IV SCH (23:35)
[2020-02-02] MEDS ORDERED: FERROUS SULFATE 325MG TABLET PO SCH (09:00)
[2020-02-02] MEDS ORDERED: DOCUSATE SODIUM 100MG CAPSULE PO SCH (09:00)
[2020-02-02] MEDS ORDERED: CHOLECALCIFEROL (D3) 1000 UNIT TABLET PO SCH (09:00)
[2020-02-02 09:12] LABS: HEMATOCRIT. 24.4 % (42.0-52.0); HEMOGLOBIN. 8.3 g/dL (14.0-18.0); MEAN CORPUSCULAR HEMOGLOBIN 31.9 pg (28.0-32.0); MEAN CORPUSCULAR VOLUME 93.3 fL (80.0-94.0); RED BLOOD CELL COUNT 2.62 mill/uL (4.7-6.1); RED CELL DISTRIBUTION WIDTH 16.7 % (11.6-14.6)
[2020-02-02 09:24] LABS: CHLORIDE 112 mEq/L (98-107)
[2020-02-02] MEDS: SODIUM CHLORIDE 0.9% 1,000 ML IV SCH (09:37)
[2020-02-02 09:43] LABS: MEAN PLATELET VOLUME 9.3 fl (7.4-10.4); PLATELET ESTIMATE NORMAL
[2020-02-02 09:44] LABS: PLATELET 257 x1000/uL (130-400)
[2020-02-02] MEDS: DULOXETINE HCL 60MG DR CAPSULE PO SCH ×2 (10:00→18:36)
[2020-02-02] MEDS: SUCRALFATE 1G TABLET PEG SCH ×3 (10:00→18:36)
[2020-02-02] MEDS: METFORMIN HCL 500MG TABLET PO SCH ×2 (10:00→17:00)
[2020-02-02 10:08] LABS: BG DEOXYHEMOGLOBIN 1.9 % (0.0-5.0); BG FRACTION INSPIRED OXYGEN 40; BG HCO3 ACT 35.4 mmol/L (22.0-26.0); BG METHEMOGLOBIN 0.7 % (0.0-1.5); BG OXYGEN SATURATION 98.1 % (92.0-98.5); BG OXYHEMOGLOBIN 97.4 % (94.0-97.0); BG PCO2 61.2 mmHg (35.0-45.0); BG SAMPLE SITE RIGHT RADIAL; BG TIDAL VOLUME(mL) 500 mL; BG TOTAL HEMOGLOBIN 8.6 g/dL (12.0-18.0); BG VENT MODE VENT - A/C; BG VENT RATE 16 set
[2020-02-02] MEDS: CLONAZEPAM 1MG TABLET PO SCH ×2 (12:11→18:36)
[2020-02-02] MEDS: PANTOPRAZOLE 40MG DR TABLET PO SCH ×2 (12:11→18:36)
[2020-02-02 23:00] VITALS: BP 111/66
== END 2020-02-02 23:05 | disposition home or self-care (01) ==
LOC: ER 16:26 → EDBEDREQSVC 02-02 02:52 → EDBEDREQDT 02-02 02:52 → EDBEDREQTM 02-02 02:52 → ENRESERV 02-02 07:35 → EDBEDREQSVC 02-02 11:47 → CANBEDREQ 02-02 20:29 → ER 02-02 23:05
DX: D64.9 Anemia, unspecified (principal); J44.9 Chronic obstructive pulmonary disease, unspecified; E11.9 Type 2 diabetes mellitus without complications; Z98.890 Other specified postprocedural states; Z79.899 Other long term (current) drug therapy
CPT/HCPCS: 36415; 36600; 71045; 80053; 82375; 82805; 82962; 83735; 85025; 85610; 86850; 86900; 86901; 86920; 93005; 94002; 94003; 99291; J7030; P9016

== ENCOUNTER 2020-02-09 15:47 | Inpatient (IN) | payer MEDICARE, MEDICAID ==
[~2020-02-09] VITALS: Ht 205.7 cm; Wt 75.4 kg
[2020-02-09] MEDS ORDERED: ACETAMINOPHEN 650MG SUPP PR STA (16:18)
[2020-02-09] MEDS ORDERED: VANCOMYCIN 1 G PREMIX 200 ML IV ONE (16:30)
[2020-02-09] MEDS ORDERED: PIPERACILLIN/TAZ 3.375G PREMIX 50 ML IV ONE (16:30)
[2020-02-09] MEDS ORDERED: SODIUM CHLORIDE 0.9% 1000ML BAG (SEPSIS BOLUS) IV ONE (16:30)
[2020-02-09 16:47] LABS: HEMOGLOBIN. 7.3 g/dL (14.0-18.0); MEAN CORPUSCULAR HEMOGLOBIN 31.2 pg (28.0-32.0); MEAN CORPUSCULAR VOLUME 97.7 fL (80.0-94.0); PLATELET 186 x1000/uL (130-400); RED BLOOD CELL COUNT 2.35 mill/uL (4.7-6.1); RED CELL DISTRIBUTION WIDTH 19.6 % (11.6-14.6)
[2020-02-09 16:51] LABS: CHLORIDE 113 mEq/L (98-107)
[2020-02-09 16:56] LABS: CLARITY URINE CLOUDY (CLEAR); COLOR URINE DARK YELLOW (YELLOW); KETONES URINE NEGATIVE (NEGATIVE); LEUKOCYTE ESTERASE URINE 3+ (NEGATIVE); NITRITE URINE NEGATIVE (NEGATIVE); OCCULT BLOOD URINE TRACE (NEGATIVE); PH URINE >=9.0 (4.5-8.0); PROTEIN URINE 3+ (NEGATIVE); SPECIFIC GRAVITY URINE 1.021 (1.005-1.030)
[2020-02-09 17:13] LABS: INR 1.1; PROTHROMBIN TIME 11.5 sec (9.6-11.0)
[2020-02-09 19:04] LABS: PLATELET ESTIMATE NORMAL
[2020-02-09] MEDS ORDERED: ACETAMINOPHEN 650MG SUPP PR ONE (21:15)
[2020-02-09] MEDS ORDERED: PIPERACILLIN/TAZ 3.375G PREMIX 50 ML IV SCH (22:00)
[2020-02-09] MEDS ORDERED: ACETAMINOPHEN 325MG TABLET PO PRN (22:15)
[2020-02-09] MEDS ORDERED: CLONIDINE 0.1MG TABLET PO PRN (22:15)
[2020-02-09] MEDS ORDERED: DIPHENHYDRAMINE 50MG/ML VIAL IV PRN (22:15)
[2020-02-09] MEDS ORDERED: IPRATROPIUM/ALBUTEROL 0.5-3(2.5)MG/3ML NEB HHN PRN (22:15)
[2020-02-09] MEDS ORDERED: ACETAMINOPHEN 650MG/20.3ML UDC PO ONE (23:15)
[2020-02-09] MEDS ORDERED: INSULIN REGULAR (HUMULIN R) 300UNITS/3ML IV ONE (23:15)
[2020-02-09] MEDS ORDERED: CALCIUM GLUCONATE 1,000 MG in DEXT 5% WATER 100 ML IV ONE (23:15)
[2020-02-09] MEDS ORDERED: DEXTROSE 50% WATER 50ML SYRINGE IV ONE (23:15)
[2020-02-09] MEDS ORDERED: SODIUM BICARBONATE 8.4% 1 MEQ/ML 50ML SYR IV ONE (23:15)
[2020-02-10] VITALS (87 sets, daily range): BP systolic 74–119; BP diastolic 32–104
[2020-02-10] MEDS: ACETAMINOPHEN 650MG/20.3ML UDC GT PRN (00:09)
[2020-02-10] MEDS ORDERED: SODIUM CHLORIDE 0.9% 250 ML IV ONE (00:49)
[2020-02-10] MEDS ORDERED: NOREPINEPHRINE 4 MG in DEXT 5% WATER 246 ML IV PRN (02:30)
[2020-02-10 03:14] LABS: BG BASE EXCESS 3.6 mmol/L (-2.0-2.0); BG CARBOXYHEMOGLOBIN 0.5 % (0.5-1.5); BG DEOXYHEMOGLOBIN 3.4 % (0.0-5.0); BG FRACTION INSPIRED OXYGEN 40; BG HCO3 ACT 31.1 mmol/L (22.0-26.0); BG METHEMOGLOBIN 0.1 % (0.0-1.5); BG OXYGEN SATURATION 96.6 % (92.0-98.5); BG PCO2 68.5 mmHg (35.0-45.0); BG PH 7.275 (7.350-7.450); BG PO2 91.4 mmHg (75.0-100.0); BG SAMPLE SITE LEFT RADIAL; BG TIDAL VOLUME(mL) 500 mL; BG TOTAL HEMOGLOBIN 7.5 g/dL (12.0-18.0); BG VENT MODE VENT - A/C; BG VENT RATE 16 set
[2020-02-10] MEDS: PIPERACILLIN/TAZ 3.375G PREMIX 50 ML IV SCH ×4 (05:43→23:20)
[2020-02-10] MEDS ORDERED: VANCOMYCIN 1 G PREMIX 200 ML IV SCH (07:00)
[2020-02-10] MEDS: NOREPINEPHRINE 16 MG in DEXT 5% WATER 234 ML IV PRN (10:00)
[2020-02-10 10:30] LABS: HEMATOCRIT. 23.8 % (42.0-52.0); HEMOGLOBIN. 7.8 g/dL (14.0-18.0); MEAN CORPUSCULAR HEMOGLOBIN 30.4 pg (28.0-32.0); MEAN CORPUSCULAR VOLUME 92.2 fL (80.0-94.0); PLATELET 153 x1000/uL (130-400); RED BLOOD CELL COUNT 2.58 mill/uL (4.7-6.1); RED CELL DISTRIBUTION WIDTH 19.3 % (11.6-14.6)
[2020-02-10 10:41] LABS: CHLORIDE 115 mEq/L (98-107)
[2020-02-10 12:50] LABS: NUCLEATED RED BLOOD CELLS 1 /100 WBC; PLATELET ESTIMATE NORMAL
[2020-02-10] MEDS: SODIUM CHLORIDE 0.45% 1,000 ML IV SCH (13:35)
[2020-02-10] MEDS: PANTOPRAZOLE SODIUM 40 MG/VIAL IV SCH (13:36)
[2020-02-10] MEDS: MIDODRINE HCL 5MG TABLET PO SCH ×2 (13:36→18:31)
[2020-02-10] MEDS: LORAZEPAM 2MG/ML CPJ IV PRN ×2 (13:36→18:36)
[2020-02-10] MEDS ORDERED: DEXTROSE 50% WATER 50ML SYRINGE IV PRN (15:00)
[2020-02-10] MEDS: IPRATROPIUM/ALBUTEROL 0.5-3(2.5)MG/3ML NEB HHN SCH ×3 (15:39→23:41)
[2020-02-10] MEDS: ACETYLCYSTEINE 100MG/ML 10% VIAL 4ML INH SCH ×2 (15:39→23:41)
[2020-02-10] MEDS: BLOOD SUGAR DIAGNOSTIC STRIP TEST SCH ×2 (16:30→20:52)
[2020-02-10] MEDS: INSULIN LISPRO 100 UNITS/ML SUBCUT SCH ×2 (17:00→20:53)
[2020-02-10] MEDS: ATORVASTATIN CALCIUM 20MG TABLET PO SCH (22:06)
[2020-02-11] VITALS (98 sets, daily range): BP systolic 84–136; BP diastolic 35–94
[2020-02-11] MEDS: ACETYLCYSTEINE 100MG/ML 10% VIAL 4ML INH SCH ×3 (00:10→15:28)
[2020-02-11] MEDS ORDERED: VANCOMYCIN 1 G PREMIX 200 ML IV SCH (04:00)
[2020-02-11] MEDS: IPRATROPIUM/ALBUTEROL 0.5-3(2.5)MG/3ML NEB HHN SCH ×5 (04:56→20:10)
[2020-02-11] MEDS: SODIUM CHLORIDE 0.45% 1,000 ML IV SCH ×3 (05:07→21:43)
[2020-02-11] MEDS: PIPERACILLIN/TAZ 3.375G PREMIX 50 ML IV SCH ×4 (05:25→23:19)
[2020-02-11 05:26] LABS: HEMATOCRIT. 26.5 % (42.0-52.0); HEMOGLOBIN. 8.7 g/dL (14.0-18.0); MEAN CORPUSCULAR HEMOGLOBIN 30.7 pg (28.0-32.0); MEAN CORPUSCULAR VOLUME 93.8 fL (80.0-94.0); MEAN PLATELET VOLUME 11.1 fl (7.4-10.4); PLATELET 204 x1000/uL (130-400); RED BLOOD CELL COUNT 2.83 mill/uL (4.7-6.1); RED CELL DISTRIBUTION WIDTH 18.6 % (11.6-14.6)
[2020-02-11] MEDS: BLOOD SUGAR DIAGNOSTIC STRIP TEST SCH ×4 (05:34→20:42)
[2020-02-11] MEDS: INSULIN LISPRO 100 UNITS/ML SUBCUT SCH ×4 (06:44→20:47)
[2020-02-11] MEDS: NOREPINEPHRINE 16 MG in DEXT 5% WATER 234 ML IV PRN ×2 (06:48→21:43)
[2020-02-11 08:23] LABS: PLATELET ESTIMATE NORMAL
[2020-02-11] MEDS: MIDODRINE HCL 5MG TABLET PO SCH ×3 (08:27→16:57)
[2020-02-11] MEDS: PANTOPRAZOLE SODIUM 40 MG/VIAL IV SCH (08:27)
[2020-02-11] MEDS ORDERED: NON FORMULARY PATIENT HOME MED XX SCH (09:00)
[2020-02-11 09:25] LABS: BG BASE EXCESS 0.6 mmol/L (-2.0-2.0); BG CARBOXYHEMOGLOBIN 0.1 % (0.5-1.5); BG DEOXYHEMOGLOBIN 4.2 % (0.0-5.0); BG FRACTION INSPIRED OXYGEN 35; BG HCO3 ACT 24.1 mmol/L (22.0-26.0); BG METHEMOGLOBIN 0.5 % (0.0-1.5); BG OXYGEN SATURATION 95.8 % (92.0-98.5); BG OXYHEMOGLOBIN 95.2 % (94.0-97.0); BG PCO2 33.9 mmHg (35.0-45.0); BG PH 7.469 (7.350-7.450); BG PO2 80.3 mmHg (75.0-100.0); BG SAMPLE SITE RIGHT BRACHIAL; BG TIDAL VOLUME(mL) 500 mL; BG TOTAL HEMOGLOBIN 9.6 g/dL (12.0-18.0); BG VENT MODE VENT - A/C; BG VENT RATE 18 set
[2020-02-11] MEDS: IRON SUCROSE COMPLEX 100 MG/5 ML ML IV SCH (09:37)
[2020-02-11] MEDS: ATORVASTATIN CALCIUM 20MG TABLET PO SCH (20:46)
[2020-02-11] MEDS: LORAZEPAM 2MG/ML CPJ IV PRN (22:13)
[2020-02-12] VITALS (59 sets, daily range): BP systolic 77–121; BP diastolic 26–70
[2020-02-12] MEDS: ACETYLCYSTEINE 100MG/ML 10% VIAL 4ML INH SCH ×3 (00:10→16:10)
[2020-02-12] MEDS: IPRATROPIUM/ALBUTEROL 0.5-3(2.5)MG/3ML NEB HHN SCH ×6 (00:10→20:34)
[2020-02-12] MEDS: BLOOD SUGAR DIAGNOSTIC STRIP TEST SCH ×4 (05:38→21:00)
[2020-02-12] MEDS: PIPERACILLIN/TAZ 3.375G PREMIX 50 ML IV SCH ×2 (05:38→12:13)
[2020-02-12] MEDS: INSULIN LISPRO 100 UNITS/ML SUBCUT SCH ×4 (05:41→21:00)
[2020-02-12 05:53] LABS: HEMATOCRIT. 24.8 % (42.0-52.0); HEMOGLOBIN. 8.2 g/dL (14.0-18.0); MEAN CORPUSCULAR HEMOGLOBIN 30.9 pg (28.0-32.0); MEAN CORPUSCULAR VOLUME 93.5 fL (80.0-94.0); MEAN PLATELET VOLUME 10.3 fl (7.4-10.4); PLATELET 195 x1000/uL (130-400); RED BLOOD CELL COUNT 2.66 mill/uL (4.7-6.1); RED CELL DISTRIBUTION WIDTH 18.3 % (11.6-14.6)
[2020-02-12] MEDS: PANTOPRAZOLE SODIUM 40 MG/VIAL IV SCH (08:26)
[2020-02-12] MEDS: SODIUM CHLORIDE 0.45% 1,000 ML IV SCH ×2 (08:26→17:58)
[2020-02-12] MEDS: MIDODRINE HCL 5MG TABLET PO SCH ×3 (08:26→17:29)
[2020-02-12] MEDS: IRON SUCROSE COMPLEX 100 MG/5 ML ML IV SCH (08:26)
[2020-02-12] MEDS: LORAZEPAM 2MG/ML CPJ IV PRN (08:26)
[2020-02-12 11:03] LABS: PLATELET ESTIMATE NORMAL
[2020-02-12] MEDS ORDERED: ALBUMIN HUMAN 25GM/500ML (5%) IV SCH (13:00)
[2020-02-12] MEDS: VANCOMYCIN 750 MG PREMIX 150 ML IV SCH (13:59)
[2020-02-12] MEDS: CEFTAZIDIME PENTAHYDRATE 1 G in DEXTROSE 5% WATER 50 ML IV SCH (17:53)
[2020-02-12] MEDS: ATORVASTATIN CALCIUM 20MG TABLET PO SCH (20:46)
[2020-02-12] MEDS: ZOLPIDEM TARTRATE 5MG TABLET PO PRN (20:55)
[2020-02-12] MEDS: NOREPINEPHRINE 16 MG in DEXT 5% WATER 234 ML IV PRN (22:41)
[2020-02-13] VITALS (82 sets, daily range): BP systolic 70–146; BP diastolic 25–70
[2020-02-13] MEDS: IPRATROPIUM/ALBUTEROL 0.5-3(2.5)MG/3ML NEB HHN SCH ×5 (00:55→20:22)
[2020-02-13] MEDS: ACETYLCYSTEINE 100MG/ML 10% VIAL 4ML INH SCH ×3 (00:55→15:56)
[2020-02-13] MEDS: SODIUM CHLORIDE 0.45% 1,000 ML IV SCH ×2 (05:23→17:00)
[2020-02-13] MEDS: CEFTAZIDIME PENTAHYDRATE 1 G in DEXTROSE 5% WATER 50 ML IV SCH ×2 (05:24→17:00)
[2020-02-13] MEDS: INSULIN LISPRO 100 UNITS/ML SUBCUT SCH ×4 (06:00→23:53)
[2020-02-13] MEDS: BLOOD SUGAR DIAGNOSTIC STRIP TEST SCH ×4 (06:00→23:53)
[2020-02-13 07:08] LABS: HEMATOCRIT. 22.9 % (42.0-52.0); HEMOGLOBIN. 7.5 g/dL (14.0-18.0); MEAN CORPUSCULAR HEMOGLOBIN 30.2 pg (28.0-32.0); MEAN CORPUSCULAR VOLUME 92.7 fL (80.0-94.0); MEAN PLATELET VOLUME 10.5 fl (7.4-10.4); PLATELET 190 x1000/uL (130-400); RED BLOOD CELL COUNT 2.47 mill/uL (4.7-6.1); RED CELL DISTRIBUTION WIDTH 17.7 % (11.6-14.6)
[2020-02-13] MEDS: IRON SUCROSE COMPLEX 100 MG/5 ML ML IV SCH (09:19)
[2020-02-13] MEDS: PANTOPRAZOLE SODIUM 40 MG/VIAL IV SCH (09:19)
[2020-02-13] MEDS: ASCORBIC ACID 500 MG TABLET PO SCH (09:20)
[2020-02-13] MEDS: MIDODRINE HCL 5MG TABLET PO SCH ×3 (09:20→17:00)
[2020-02-13] MEDS: ZINC SULFATE 220 MG ( 50 ) CAPSULE PO SCH (09:20)
[2020-02-13] MEDS ORDERED: MIDODRINE HCL 5MG TABLET GT SCH (10:30)
[2020-02-13] MEDS ORDERED: SODIUM CHLORIDE 0.9% 500 ML IV ONE (10:30)
[2020-02-13] MEDS ORDERED: POTASSIUM CHLORIDE 20MEQ TABLET SR PO NR (10:45)
[2020-02-13] MEDS ORDERED: FUROSEMIDE 20MG/2ML VIAL IVP NR (11:00)
[2020-02-13 12:05] LABS: PLATELET ESTIMATE NORMAL
[2020-02-13] MEDS: VANCOMYCIN 750 MG PREMIX 150 ML IV SCH (12:24)
[2020-02-13] MEDS: ATORVASTATIN CALCIUM 20MG TABLET PO SCH (19:55)
[2020-02-13] MEDS: ZOLPIDEM TARTRATE 5MG TABLET PO PRN (19:55)
[2020-02-13] MEDS: LORAZEPAM 2MG/ML CPJ IV PRN (22:19)
[2020-02-14] VITALS (50 sets, daily range): BP systolic 87–118; BP diastolic 40–80
[2020-02-14] MEDS: ACETYLCYSTEINE 100MG/ML 10% VIAL 4ML INH SCH ×4 (00:04→23:52)
[2020-02-14] MEDS: IPRATROPIUM/ALBUTEROL 0.5-3(2.5)MG/3ML NEB HHN SCH ×7 (00:04→23:52)
[2020-02-14] MEDS: SODIUM CHLORIDE 0.45% 1,000 ML IV SCH ×2 (02:07→22:44)
[2020-02-14] MEDS: NOREPINEPHRINE 16 MG in DEXT 5% WATER 234 ML IV PRN (02:07)
[2020-02-14] MEDS: CEFTAZIDIME PENTAHYDRATE 1 G in DEXTROSE 5% WATER 50 ML IV SCH (05:44)
[2020-02-14] MEDS: BLOOD SUGAR DIAGNOSTIC STRIP TEST SCH ×4 (05:45→23:10)
[2020-02-14] MEDS: INSULIN LISPRO 100 UNITS/ML SUBCUT SCH ×4 (05:45→23:10)
[2020-02-14 05:49] LABS: HEMATOCRIT. 24.2 % (42.0-52.0); HEMOGLOBIN. 7.9 g/dL (14.0-18.0); MEAN CORPUSCULAR HEMOGLOBIN 30.7 pg (28.0-32.0); MEAN CORPUSCULAR VOLUME 93.5 fL (80.0-94.0); MEAN PLATELET VOLUME 10.2 fl (7.4-10.4); PLATELET 191 x1000/uL (130-400); RED BLOOD CELL COUNT 2.59 mill/uL (4.7-6.1); RED CELL DISTRIBUTION WIDTH 17.5 % (11.6-14.6)
[2020-02-14 05:57] LABS: CHLORIDE 107 mEq/L (98-107)
[2020-02-14] MEDS: ASCORBIC ACID 500 MG TABLET PO SCH (09:04)
[2020-02-14] MEDS: IRON SUCROSE COMPLEX 100 MG/5 ML ML IV SCH (09:04)
[2020-02-14] MEDS: ZINC SULFATE 220 MG ( 50 ) CAPSULE PO SCH (09:04)
[2020-02-14] MEDS: PANTOPRAZOLE SODIUM 40 MG/VIAL IV SCH (09:04)
[2020-02-14] MEDS: MIDODRINE HCL 5MG TABLET PO SCH ×3 (09:05→17:07)
[2020-02-14] MEDS ORDERED: MORPHINE SULFATE 2 MG/ML CPJ (NOT FOR IM USE) IV NR (10:00)
[2020-02-14 11:48] LABS: NUCLEATED RED BLOOD CELLS 1 /100 WBC; PLATELET ESTIMATE NORMAL
[2020-02-14] MEDS: VANCOMYCIN 750 MG PREMIX 150 ML IV SCH (12:02)
[2020-02-14 15:51] LABS: BG BASE EXCESS 6.2 mmol/L (-2.0-2.0); BG CARBOXYHEMOGLOBIN 0.6 % (0.5-1.5); BG DEOXYHEMOGLOBIN 4.9 % (0.0-5.0); BG FRACTION INSPIRED OXYGEN 35; BG HCO3 ACT 32.4 mmol/L (22.0-26.0); BG METHEMOGLOBIN 0.6 % (0.0-1.5); BG OXYHEMOGLOBIN 93.9 % (94.0-97.0); BG PCO2 57.9 mmHg (35.0-45.0); BG PH 7.366 (7.350-7.450); BG PO2 75.3 mmHg (75.0-100.0); BG SAMPLE SITE RIGHT RADIAL; BG TIDAL VOLUME(mL) 500 mL; BG TOTAL HEMOGLOBIN 7.9 g/dL (12.0-18.0); BG VENT MODE VENT - A/C; BG VENT RATE 14 set
[2020-02-14] MEDS: CEFTAZIDIME PENTAHYDRATE 2 G in DEXT 5% WATER 100 ML IV SCH ×2 (17:06→22:44)
[2020-02-14] MEDS: ATORVASTATIN CALCIUM 20MG TABLET PO SCH (20:25)
[2020-02-14] MEDS: ACETAMINOPHEN 650MG/20.3ML UDC GT PRN (20:25)
[2020-02-15] VITALS (13 sets, daily range): BP systolic 90–120; BP diastolic 45–77
[2020-02-15] MEDS: CEFTAZIDIME PENTAHYDRATE 2 G in DEXT 5% WATER 100 ML IV SCH (05:36)
[2020-02-15] MEDS: INSULIN LISPRO 100 UNITS/ML SUBCUT SCH ×4 (05:46→23:51)
[2020-02-15] MEDS: BLOOD SUGAR DIAGNOSTIC STRIP TEST SCH ×4 (05:46→23:50)
[2020-02-15 06:15] LABS: HEMOGLOBIN. 7.5 g/dL (14.0-18.0); MEAN CORPUSCULAR VOLUME 94.5 fL (80.0-94.0); PLATELET 199 x1000/uL (130-400); RED BLOOD CELL COUNT 2.43 mill/uL (4.7-6.1); RED CELL DISTRIBUTION WIDTH 17.9 % (11.6-14.6)
[2020-02-15 06:30] LABS: CHLORIDE 105 mEq/L (98-107)
[2020-02-15] MEDS: ASCORBIC ACID 500 MG TABLET PO SCH (08:14)
[2020-02-15] MEDS: MIDODRINE HCL 5MG TABLET PO SCH ×3 (08:14→17:40)
[2020-02-15] MEDS: IRON SUCROSE COMPLEX 100 MG/5 ML ML IV SCH (08:14)
[2020-02-15] MEDS: ZINC SULFATE 220 MG ( 50 ) CAPSULE PO SCH (08:14)
[2020-02-15] MEDS: PANTOPRAZOLE SODIUM 40 MG/VIAL IV SCH (08:15)
[2020-02-15] MEDS: ACETYLCYSTEINE 100MG/ML 10% VIAL 4ML INH SCH (09:16)
[2020-02-15] MEDS: IPRATROPIUM/ALBUTEROL 0.5-3(2.5)MG/3ML NEB HHN SCH ×4 (09:17→20:27)
[2020-02-15] MEDS ORDERED: LIDOCAINE 1%/EPI 1:100,000 10 ML VIAL IJ NR (11:30)
[2020-02-15] MEDS ORDERED: ASPIRIN 81MG TABLET PO SCH (11:30)
[2020-02-15 16:42] LABS: PLATELET ESTIMATE NORMAL
[2020-02-15 16:52] LABS: HEMATOCRIT 23.8 % (42.0-52.0); HEMOGLOBIN 7.8 g/dL (14.0-18.0)
[2020-02-15] MEDS ORDERED: DOCUSATE SODIUM SUGAR FREE 100MG/10ML UDC GT SCH (17:00)
[2020-02-15 17:05] LABS: TOTAL IRON BINDING CAPACITY 191 ug/dL (250-450)
[2020-02-15] MEDS: METOCLOPRAMIDE HCL 10MG/2ML VIAL IV SCH ×2 (17:40→23:50)
[2020-02-15] MEDS: SUCRALFATE 1 G/10 ML UDC PO SCH ×2 (17:40→20:11)
[2020-02-15] MEDS ORDERED: CEFTAZIDIME PENTAHYDRATE 2 G in DEXT 5% WATER 100 ML IV SCH (18:00)
[2020-02-15] MEDS: ATORVASTATIN CALCIUM 20MG TABLET PO SCH (20:11)
[2020-02-15] MEDS ORDERED: LACTULOSE 20G/30ML UDC PO SCH (21:00)
== END 2020-02-16 00:45 | DRG 853 ==
LOC: ER 15:47 → EDBEDREQ 18:00 → MICUSO 21:00 → EDBEDREQSVC 21:04 → EDBEDREQTM 21:04 → ENRESERV 21:34 → MICUNO 02-11 06:30 → CVICU 02-12 09:30 → 5EST 02-14 21:38
PROVIDERS: ADMIT Family Medicine Adult Medicine; ATTEND Family Medicine Adult Medicine
PROC: 5A1955Z Respiratory Ventilation, Greater than 96 Consecutive Hours (ICD-10-PCS; principal; 2020-02-09)
PROC: 30233N1 Transfusion of Nonautologous Red Blood Cells into Peripheral Vein, Percutaneous Approach (ICD-10-PCS; 2020-02-10)
PROC: B54MZZA Ultrasonography of Right Upper Extremity Veins, Guidance (ICD-10-PCS; 2020-02-10)
PROC: 05HY33Z Insertion of Infusion Device into Upper Vein, Percutaneous Approach (ICD-10-PCS; 2020-02-10)
PROC: 0JB70ZZ Excision of Back Subcutaneous Tissue and Fascia, Open Approach (ICD-10-PCS; 2020-02-15)
DX: A41.52 Sepsis due to Pseudomonas (principal); L89.153 Pressure ulcer of sacral region, stage 3; E43 Unspecified severe protein-calorie malnutrition; R65.21 Severe sepsis with septic shock; I21.4 Non-ST elevation (NSTEMI) myocardial infarction; J69.0 Pneumonitis due to inhalation of food and vomit; N17.0 Acute kidney failure with tubular necrosis; J96.22 Acute and chronic respiratory failure with hypercapnia; J15.1 Pneumonia due to Pseudomonas; N39.0 Urinary tract infection, site not specified; I42.9 Cardiomyopathy, unspecified; J44.1 Chronic obstructive pulmonary disease with (acute) exacerbation; D62 Acute posthemorrhagic anemia; K92.2 Gastrointestinal hemorrhage, unspecified; E87.1 Hypo-osmolality and hyponatremia; E87.2 Acidosis; Z99.11 Dependence on respirator [ventilator] status; Z68.1 Body mass index [BMI] 19.9 or less, adult; E87.0 Hyperosmolality and hypernatremia; J44.0 Chronic obstructive pulmonary disease with (acute) lower respiratory infection; I27.20 Pulmonary hypertension, unspecified; E87.5 Hyperkalemia; B96.4 Proteus (mirabilis) (morganii) as the cause of diseases classified elsewhere; D72.810 Lymphocytopenia; E11.9 Type 2 diabetes mellitus without complications; E78.00 Pure hypercholesterolemia, unspecified; E78.5 Hyperlipidemia, unspecified; E87.70 Fluid overload, unspecified; E87.8 Other disorders of electrolyte and fluid balance, not elsewhere classified; F31.9 Bipolar disorder, unspecified; F41.9 Anxiety disorder, unspecified; I08.2 Rheumatic disorders of both aortic and tricuspid valves; I10 Essential (primary) hypertension; I48.0 Paroxysmal atrial fibrillation; N40.0 Benign prostatic hyperplasia without lower urinary tract symptoms; Z93.0 Tracheostomy status; Z22.322 Carrier or suspected carrier of Methicillin resistant Staphylococcus aureus; Z93.1 Gastrostomy status; Z79.84 Long term (current) use of oral hypoglycemic drugs; Z79.899 Other long term (current) drug therapy
CPT/HCPCS: 36415; 36600; 71045; 74018; 76937; 80048; 80053; 80202; 81003; 82040; 82270; 82375; 82728; 82805; 82962; 83540; 83550; 83605; 83880; 84134; 84145; 84484; 85014; 85018; 85025; 86850; 86900; 86920; 87070; 87077; 87186; 93005; 93306; 93970; 93971; 94002; 94003; 94640; 96365; 97162; 99285; C1725; C9113; J0610; J0713; J1200; J1815; J1940; J2060; J2270; J2543; J2765; J3370; J3490; J7030; J7060; J7608; P9016; P9041; U0003-CS